=== PATIENT | male | born 1965 | race Caucasian/White ===

== ENCOUNTER 2023-04-07 16:26 | Inpatient (IN) | payer BC, SELFPAY ==
[2023-04-07] VITALS (24 sets, daily range): BP systolic 100–134; BP diastolic 62–94; PULSE 106–124; RESP 15–35; TEMP 36.3–36.8; O2SAT 79–100; BMI 32.6
--- NOTE | ~2023-04-07 | CT_ITS ---
CT OF right knee EXAMINATION: CT knee RT wo con DATE: 04/09/2023 16:45 INDICATION: Right lower extremity cellulitis TECHNIQUE: Computed tomography (CT) of the right knee was performed without intravenous contrast. Aut omated exposure control and iterative reconstruction technique were employed. The dose-length product was 707.31 mGy-cm. COMPARISON: None FINDINGS: Screw and plate fixation of the proximal tibia. No hardware fracture. No perihilar hardware lucency. Old healed tibial plateau fracture. Decreased bone mineral density with rarified trabecular bone. Mod erate right knee osteoarthritis. Linear calcifications over the MCL, may reflect old fracture fragmen ts and/or dystrophic calcification/ossification from prior injury. Atherosclerotic vascular calcifica tions. Small volume knee joint fluid. Subcutaneous edema over the anterior compartment. IMPRESSION: Subcutaneous edema over the anterior compartment. Evaluation for abscess is limited without contrast. No acute osseous finding. No CT evidence of hardware-related complication. Reviewed, dictated and finalized at location K. MOBILE IMPRESSION: Subcutaneous edema over the anterior compartment. Evaluation for abscess is merida ited without contrast. No acute osseous finding. No CT evidence of hardware-related complication.
--- NOTE | ~2023-04-07 | XR_ITS ---
EXAMINATION: XR chest 1V portable DATE: 04/07/2023 17:29 INDICATION: Several weeks of dyspnea TECHNIQUE: frontal view of the chest was obtained. COMPARISON: None FINDINGS: There is mild increased interstitial pattern in the bilateral lower lungs with suggestion of some bro nchial wall thickening. No pleural effusion or pneumothorax. The cardiomediastinal silhouette is with in normal limits for AP technique. IMPRESSION: 1. Mild increased initial pattern and mild bronchial wall thickening in the bilateral lower lung zone s which in the acute setting could be seen with bronchitis, atypical/early pneumonia or mild pulmonar y edema. Differential would include chronic interstitial lung disease. Reviewed, dictated and finalized at location A. CARETAKER IMPRESSION: 1. Mild increased initial pattern and mild bronchial wall thickening in the sunny ateral lower lung zones which in the acute setting could be seen with bronchiti s, atypical/early pneumonia or mild pulmonary edema. Differential would include chronic interstitial lung disease.
--- NOTE | ~2023-04-07 | XR_ITS ---
EXAMINATION: XR foot RT min 3V DATE: 04/11/2023 10:55 INDICATION: Right foot pain TECHNIQUE: Dorsoplantar, lateral, and 2 oblique views of the right foot were obtained. COMPARISON: None. FINDINGS: There is marked osteopenia of the right foot which limits sensitivity for fracture although none is seen. There is mild osteoarthritis of multiple interphalangeal joints. The soft tissues are unremarkable. IMPRESSION: 1. No acute osseous abnormality, sensitivity for fracture limited by osteopenia.. Reviewed, dictated and finalized at location L. HER OF GIFTED STUDENTS IMPRESSION: 1. No acute osseous abnormality, sensitivity for fracture limited by osteopenia ..
--- NOTE | 2023-04-07 16:42 | ECG_ITS ---
Measurements Intervals [place] Rate: 121 P: 72 ID: 151 QRS: 165 QRSD: 87 T: 60 QT: 312 QTc: 443 Interpretive Statements SINUS TACHYCARDIA LOW QRS VOLTAGE INCOMPLETE RIGHT BUNDLE BRANCH BLOCK RIGHT SUPERIOR AXIS DEVIATION ABNORMAL ECG NO PREVIOUS ECG AVAILABLE FOR COMPARISON Electronically Signed On 04-08-2023 8:13:44 [employer]LOOR MECH[employer] by Nic Borrero M.D.
[2023-04-07] MEDS: IPRATROPIUM BR 0.02% INH SOLN 0.5 MG/2.5 ML VIAL 1.5 MG INHALATION (16:50)
[2023-04-07] MEDS: ALBUTEROL SULFATE NEB 2.5 MG/3 ML INH 15 MG INHALATION (16:51)
[2023-04-07 17:08] LABS: Fractional Inspired Oxygen 40 %; HCO3 VBG 23.9 mEq/l (24.0-30.0); PO2 VBG 33.3 mmHg (35.0-45.0)
[2023-04-07 17:11] LABS: Device NASAL CANNULA; PCO2 VBG 67.3 mmHg (42.0-48.0); pH VBG 7.169 (7.300-7.400)
[2023-04-07 17:11] LABS: Basophils Percent Auto 0.2 % (0.2-1.2); Hematocrit 52.6 % (42.0-52.0); Hemoglobin 16.4 g/dL (14.0-18.0); Immature Granulocyte Absolute 0.04 K/mm3 (0.00-0.031); Immature Granulocyte Percent A 0.4 % (0-0.5); Lymphocytes Absolute Auto 0.41 K/mm3 (0.9-3.2); Lymphocytes Percent Auto 3.9 % (18.3-44.2); Mean Corpuscular HGB Conc 31.2 g/dl (32-36); Mean Corpuscular Hemoglobin 29.8 pg (26-34); Mean Corpuscular Volume 95.5 fl (80-100); Mean Platelet Volume 12.3 fl (7.4-10.4); Monocytes Absolute Auto 0.4 K/mm3 (0.1-0.6); Monocytes Percent Auto 3.7 % (2.6-8.5); Neutrophils Absolute Auto 9.5 K/mm3 (1.3-6.7); Neutrophils Percent Auto 91.8 % (45.5-73.1); Platelet Count Result 144 k/mm3 (150-375); Red Blood Count 5.51 M/mm3 (4.6-6.20); Red Cell Distribution Width 15.2 % (11.5-14.5); White Blood Count 10.4 K/mm3 (4.5-10.0)
[2023-04-07 17:22] LABS: INR 1.1; Prothrombin Time 14.7 Seconds (11.1-14.7)
[2023-04-07 17:26] LABS: Alanine Aminotransferase 184 U/L (6-50); Albumin Level 3.8 g/dL (3.5-5.1); Alkaline Phosphatase 113 U/L (38-126); Anion Gap 6 mmol/L (8-16); Aspartate Amino Transferase 105 U/L (17-59); Bilirubin,Total 0.5 mg/dL (0.2-1.3); Blood Urea Nitrogen 55 mg/dL (9-20); Calcium 9.7 mg/dL (8.4-10.2); Carbon Dioxide 25 mmol/L (22-30); Chloride 100 mmol/L (98-107); Estimated CRCL calculation 29 ml/min; Estimated Glomerular Filt Rate 25; Glucose 398 mg/dL (65-110); Potassium 5.6 mmol/L (3.4-5.0); Sodium 131 mmol/L (137-145)
[2023-04-07] MEDS: methylPREDNISolone SOD SUCC 125 MG VIAL IV PUSH (17:37)
[2023-04-07 17:41] LABS: NT Pro B Type Natriuretic Pept > 30000 pg/mL (19.9-100); Troponin I 0.082 ng/mL (0.000-0.034)
[2023-04-07 17:59] LABS: Appearance Urine Clear (Clear); Bacteria Urine None Seen /hpf; Bilirubin Urine Negative (Negative); Blood Urine Negative (Negative); Color Urine Dark Yellow (Yellow); Glucose Urine UA 3+ mg/dL (Negative); Ketones Urine Negative (Negative); Leukocyte Esterase Ur Negative LEU/UL (Negative); Need Manual Microscopic Reviewed; Nitrate Urine Negative (Negative); Non Pathogenic Casts >20; Protein Urine 3+ mg/dL (Negative); RBC Urine 0-2 /hpf (0-2); Specific Grav Ur 1.023 (1.001-1.035); Squamous Epithelial Cell Urine Occasional /hpf (Few); WBC Urine 0-5 /hpf
[2023-04-07 18:00] LABS: Add Urine Microscopic? YES
--- NOTE | 2023-04-07 18:11 | ED.SOB ---
HPI - SOB/Dyspnea General Chief Complaint: Shortness of Breath/Dyspnea Stated Complaint: SOB/out of meds Time Seen by Provider: 04/07/23 16:37 History of Present Illness HPI Narrative: Patient is a 57-year-old male with history of COPD, CHF, CKD here from [facility] with shortness of breath. He states that began in February but worsened today. He does note that he has a history of COPD and has had to be intubated in the past. He notes recent [place] of state for bilateral pneumonia and blood per rectum. He denies any current antibiotic use. He has not been using his inhalers recently. He notes some chest tightness which also began today. Denies fever or chills. He note he typically takes lasix, has been out of it for over a year. Related Data Allergies Allergy/AdvReac Type Severity Reaction Status Date / Time codeine Allergy Hives Verified 04/07/23 16:27 ibuprofen [From Motrin] Allergy Hives Verified 04/07/23 16:27 Penicillins Allergy Hives Verified 04/07/23 16:27 Review of Systems Review of Systems: ROS unobtainable: Yes unobtainable due to medical condition (significant dyspnea) Exam Narrative: GENERAL: Ill-appearing, well-nourished, and in in respiratory distress. HEAD: Normocephalic, atraumatic. EYES: PERRLA and EOMI. ENT: Nares clear. Mucous membranes moist. NECK: Supple. CHEST: Bilateral wheeze. Tachypneic, in moderate respiratory distress HEART: Tachycardic. Normal peripheral pulses. ABDOMEN: Soft, nontender, nondistended. EXTREMITIES: Normal range of motion. No edema. SKIN: Warm, dry, no rash. NEURO: No focal deficits. Alert and oriented x3. Course Course Emergency Course: Patient seen and evaluated on arrival, tachypneic, in respiratory distress, bilateral wheeze significant. Will do continuous nebulizer, steroids, blood gas. Will escalate to BiPAP if needed. Anticipate patient will require hospitalization. Cardiac workup additionally ordered. Blood gas shows pH is 7.1 with a pCO2 elevated at 67. Will place patient on BiPAP. Lab work reviewed, my blood cell count of 10.4, creatinine elevated at 2.7, no baseline for a fear. Potassium is 5.6. Troponin elevated at 0.082. BNP greater than 30,000. Patient re-evaluated, feeling quite a bit better at this time. Tolerating BiPAP well. Producing urine, will give dose of Lasix. Repeat blood gas has been ordered. Patient re-evaluated, feeling quite well. No active chest pain. Does note history of CHF, supposed to be on lasix, not taking it. Also believes he has a history of CKD. Spoke with Dr. Hoff who accepts patient for admission. Doxycycline ordered for possible bacterial COPD exacerbation vs atypical pneumonia seen on CXR. Vital Signs Vital signs: Vital Signs Temperature 97.4 F L 04/07/23 16:31 Pulse Rate 122 H 04/07/23 16:31 Respiratory Rate 20 04/07/23 16:31 Blood Pressure 100/62 04/07/23 16:31 Pulse Oximetry 79 L 04/07/23 16:31 Oxygen Delivery Room Air 04/07/23 16:31 Temperature 97.4 F L 04/07/23 16:31 Pulse Rate 114 H 04/07/23 18:58 Respiratory Rate 30 H 04/07/23 18:31 Blood Pressure 123/92 H 04/07/23 18:16 Pulse Oximetry 99 04/07/23 17:46 Oxygen Delivery BiPAP 04/07/23 17:45 Oxygen Flow Rate 4 04/07/23 16:45 MDM - SOB/Dyspnea Lab Data 04/07/23 17:03 04/07/23 17:03 Labs: Lab Results 04/07/23 04/07/23 04/07/23 Range/Units 17:03 17:44 18:20 WBC 10.4 H (4.5-10.0) K/mm3 RBC 5.51 (4.6-6.20) M/mm3 Hgb 16.4 (14.0-18.0) g/dL Hct 52.6 H (42.0-52.0) % MCV 95.5 (80-100) fl MCH 29.8 (26-34) pg MCHC 31.2 L (32-36) g/dl RDW 15.2 H (11.5-14.5) % Plt Count 144 L (150-375) k/mm3 MPV 12.3 H (7.4-10.4) fl Immature Gran % (Auto) 0.4 (0-0.5) % Neut % (Auto) 91.8 H (45.5-73.1) % Lymph % (Auto) 3.9 L (18.3-44.2) % [place] % (Auto) 3.7 (2.6-8.5) % Eos % (Auto
[2023-04-07] MEDS: FUROSEMIDE INJ 40 MG/4 ML VIAL IV PUSH (18:56)
[2023-04-07 19:01] LABS: Influenza A QL RT-PCR Negative (Negative); Influenza B QL RT-PCR Negative (Negative); RSV RNA, RT-PCR Negative (Negative); SARS-CoV-2 RNA PCR Negative (Negative)
--- NOTE | 2023-04-07 19:37 | ECG_ITS ---
Measurements Intervals [place] Rate: 106 P: -32 RI: 143 QRS: 260 QRSD: 86 T: -70 QT: 346 QTc: 461 Interpretive Statements BASELINE ARTIFACT, REDUCED ECG QUALITY SINUS TACHYCARDIA LOW-VOLTAGE QRS INCOMPLETE RIGHT BUNDLE BRANCH BLOCK RIGHT SUPERIOR AXIS DEVIATION NONSPECIFIC T-WAVE ABNORMALITY ABNORMAL ECG COMPARED TO ECG 04/07/2023 16:43:38 NO DIFFERENCE Electronically Signed On 04-08-2023 8:20:45 [employer] by Nic Borrero M.D.
--- NOTE | 2023-04-07 19:39 | PC.NURSE ---
this rn assumed care of patient. this rn took patient report from MIGUEL Leblanc.
[2023-04-07] MEDS: ASPIRIN 81 MG CHEWABLE TABLET 324 MG PO (19:47)
[2023-04-07 20:03] LABS: Fractional Inspired Oxygen 35 %; HCO3 VBG 26.7 mEq/l (24.0-30.0)
[2023-04-07 20:05] LABS: pH VBG 7.182 (7.300-7.400)
[2023-04-07 20:06] LABS: Device BIPAP; Expiratory Pressure 8 cmH2O; Inspiratory Pressure 12 cmH2O; PCO2 VBG 72.9 mmHg (42.0-48.0)
[2023-04-07] MEDS: DOXYCYCLINE 100 MG/NS 100 ML 100 MG/100 ML BAG IVPB (20:08)
[2023-04-07 20:20] LABS: Troponin I 0.093 ng/mL (0.000-0.034)
--- NOTE | 2023-04-07 20:31 | PC.NURSE ---
Pt educated about importance of wearing bipap machine. pt verbalized understanding, pt continued to take bipap machine off and kept stating I don't need to wear this junk . Respiratory also educated pt on importance of wearing bipap machine. Pt continued to take bipap on and off.
--- NOTE | 2023-04-07 21:06 | PM.IMHP ---
H&P: HPI History of Present Illness Date/Time: 04/07/23 21:06 Chief Complaint: Shortness of breath Narrative: patient is a 57-year-old male with history of COPD, CHF, CKD here from [facility] with shortness of breath.? He states that began in February but worsened today.? He does note that he has a history of COPD and has had to be intubated in the past.? He notes recent hospitalization for [place] months out of state for bilateral pneumonia and blood per rectum.? He denies any current antibiotic use.? He has not been using his inhalers recently.? He notes some chest tightness which also began today. Denies fever or chills. He note he typically takes lasix, has been out of it for over a year. Review of Systems Review of Systems: All systems reviewed & are unremarkable except as noted in HPI and below PMFSH Family History Family History (Updated 04/07/23 @ 22:29 by Karan Vergara RN) Father Hypertension High blood cholesterol Diabetes mellitus Mother Breast cancer Kidney disease Social History Social History Smoking packs per day: 2 Smoking cigarettes per day: 40.0 Years smoked: 20 Smoking pack-years: 40.00 Smoking status: Current every day smoker Alcohol intake: current Drinks per week: 10 Substance use type: marijuana Do You Feel Safe in your Home?: Yes Lack of Transportation: No Lack of Food: Sometimes True Current Housing: I Do Not Have Housing Concerned About Future Housing: YES Difficulty Paying Gas/Electric Bills: YES Difficulty Paying for Meds: YES Currently Unemployed: YES Education: High School Diploma/GED Difficulty w/ Childcare or Family Care: No Spiritual care concerns: No Meds Home Medications and Allergies Home Medications Medication Instructions Recorded Confirmed Type albuterol sulfate 90 mcg/actuation 2 puff inhalation Q6H PRN 04/07/23 04/07/23 History aerosol inhaler Shortness Of Breath Or Wheezing aripiprazole 10 mg tablet 10 mg PO DAILY 04/07/23 04/07/23 History atorvastatin 40 mg tablet 40 mg PO DAILY 04/07/23 04/07/23 History bumetanide 2 mg tablet 2 mg PO DAILY 04/07/23 04/07/23 History fluticasone propionate 50 1 spray intranasal DAILY 04/07/23 04/07/23 History mcg/actuation nasal spray,suspension insulin glargine 100 unit/mL 10 unit subcut DAILY 04/07/23 04/07/23 History subcutaneous solution (Lantus U-100 Insulin) insulin lispro 100 unit/mL 5 unit subcut TIDWMEAL 04/07/23 04/07/23 History subcutaneous pen (Humalog KwikPen (U-100) Insulin) levothyroxine 25 mcg tablet 25 mcg PO DAILY 04/07/23 04/07/23 History metoprolol succinate 50 mg 50 mg PO DAILY 04/07/23 04/07/23 History tablet,extended release 24 hr Allergies Allergy/AdvReac Type Severity Reaction Status Date / Time codeine Allergy Hives Verified 04/07/23 16:27 ibuprofen [From Motrin] Allergy Hives Verified 04/07/23 16:27 Penicillins Allergy Hives Verified 04/07/23 16:27 Vital Signs Vital Signs - 24 hr 04/07/23 16:31 04/07/23 16:40 04/07/23 16:45 Temperature 97.4 F L Pulse Rate 122 H 121 H Respiratory Rate 20 34 H Blood Pressure 100/62 Pulse Oximetry 79 L 100 100 Oxygen Delivery Room Air Nasal Cannula Nasal Cannula Oxygen Flow Rate 4 4 04/07/23 16:50 04/07/23 17:39 04/07/23 17:45 Temperature Pulse Rate 119 H 121 H 116 H Respiratory Rate 24 H 24 H 32 H Blood Pressure Pulse Oximetry 99 Oxygen Delivery BiPAP Oxygen Flow Rate 04/07/23 16:45 04/07/23 17:01 04/07/23 17:18 Temperature Pulse Rate 121 H 120 H 122 H Respiratory Rate 15 28 H 19 Blood Pressure Pulse Oximetry 100 100 100 Oxygen Delivery Oxygen Flow Rate 04/07/23 17:30 04/07/23 17:45 04/07/23 17:46 Temperature Pulse Rate 124 H 120 H 119 H Respiratory Rate 26 H 25 H 35 H Blood Pressure 112/81 Pulse Oximetry 100 99 Oxygen Delivery Oxygen Flow Rate 04/07/23 18:07 04/07/23 18:15 04/07/23 18:16 Te
--- NOTE | 2023-04-07 21:11 | PC.NURSE ---
this rn observed pt not wearing bipap during routine check. pt was educated to wear bipap. pt stated I don't need to . This Rn placed bipap back on pt. Another RN placed pt back on bipap as well, and educated pt on importance, pt told RN, the nurse stated I do not have to wear that . Pt then requested to have RN help with urinal. Pt was able to perform ADL's independently during stay in the ER. Pt then stated he was wet and needed other RN to clean him up. Pt then removed pts and threw them on the chair in room.
--- NOTE | 2023-04-07 22:00 | ADMGEN ---
This patient, Oseas Arredondo, was admitted to IMU Room 213-01. Patient/family oriented to hospital policies and general routines including ID bracelet, bed and alarms, visiting hours, pain management, procedures, bathroom and other care routines, personal items, smoking policy, room service/diet, and visiting hours. Information on how to activate the Rapid Response Team has been discussed. Patient/Family are encouraged to report perceived risks to care and to ask questions if they do not understand what they are told or what they should do.
[2023-04-07 22:48] LABS: Anion Gap 7 mmol/L (8-16); Blood Urea Nitrogen 55 mg/dL (9-20); Calcium 9.2 mg/dL (8.4-10.2); Carbon Dioxide 24 mmol/L (22-30); Chloride 101 mmol/L (98-107); Estimated CRCL calculation 36 ml/min; Estimated Glomerular Filt Rate 30; Glucose 341 mg/dL (65-110); Potassium 5.4 mmol/L (3.4-5.0); Sodium 132 mmol/L (137-145)
[2023-04-07 22:51] LABS: Base Excess ABG -3.1 mEq/l (+/-2.0); Fractional Inspired Oxygen 35 %; HCO3 ABG 23.7 mEq/l (22.0-26.0); Oxygen Content ABG 21.2 %vol (16.0-22.0); Oxygen Saturation ABG 95.6 % (95.0-100.0); Oxyhemoglobin 93.7 % THb (90.0-100.0); PO2 ABG 86.6 mmHg (80.0-100.0); PO2 FiO2 Ratio Arterial Blood 2.47 %; Total Hemoglobin 16.1 g/dL (12.0-18.0); pH ABG 7.303 (7.350-7.450)
[2023-04-07 22:52] LABS: Site Drawn RIGHT RADIAL
[2023-04-07 22:53] LABS: Device NON-INVASIVE VENT; Modified Allen's Test Pass; Non-Invasive Expiratory Pressure 10 CMH2O; Non-Invasive Inspiratory Pressure 20 CMH2O; Non-Invasive Vent Rate 16 /MIN
[2023-04-07 23:18] LABS: Troponin I 0.093 ng/mL (0.000-0.034)
[2023-04-08] VITALS (29 sets, daily range): BP systolic 104–137; BP diastolic 58–78; PULSE 86–120; RESP 20–28; TEMP 35.9–36.6; O2SAT 91–99
[2023-04-08] MEDS: IPRATROPIUM 0.5 MG/ALBUTEROL SULFATE 2.5 MG AMPUL.NEB 3 ML INHALATION ×4 (03:00→20:42)
[2023-04-08 05:00] LABS: Basophils Percent Auto 0.1 % (0.2-1.2); Hematocrit 48.8 % (42.0-52.0); Immature Granulocyte Absolute 0.08 K/mm3 (0.00-0.031); Lymphocytes Absolute Auto 0.33 K/mm3 (0.9-3.2); Lymphocytes Percent Auto 4.1 % (18.3-44.2); Mean Corpuscular HGB Conc 30.7 g/dl (32-36); Mean Corpuscular Hemoglobin 29.4 pg (26-34); Mean Corpuscular Volume 95.5 fl (80-100); Mean Platelet Volume 12.2 fl (7.4-10.4); Monocytes Absolute Auto 0.1 K/mm3 (0.1-0.6); Monocytes Percent Auto 1.4 % (2.6-8.5); Neutrophils Absolute Auto 7.5 K/mm3 (1.3-6.7); Neutrophils Percent Auto 93.4 % (45.5-73.1); Platelet Count Result 132 k/mm3 (150-375); Red Blood Count 5.11 M/mm3 (4.6-6.20); Red Cell Distribution Width 15.2 % (11.5-14.5)
[2023-04-08 05:13] LABS: Anion Gap 8 mmol/L (8-16); Blood Urea Nitrogen 59 mg/dL (9-20); Calcium 9.1 mg/dL (8.4-10.2); Carbon Dioxide 25 mmol/L (22-30); Chloride 101 mmol/L (98-107); Estimated CRCL calculation 46 ml/min; Estimated Glomerular Filt Rate 39; Glucose 345 mg/dL (65-110); Potassium 5.3 mmol/L (3.4-5.0); Sodium 134 mmol/L (137-145)
[2023-04-08] MEDS: methylPREDNISolone SOD SUCC 40 MG VIAL IV PUSH ×3 (05:14→21:30)
[2023-04-08] MEDS: LEVOTHYROXINE SODIUM 25 MCG TABLET PO (05:14)
[2023-04-08] MEDS: INSULIN ASPART (*BKC) 100 UNITS/ML SUB-Q ×4 (09:16→20:31)
[2023-04-08] MEDS: INSULIN GLARGINE (*BKC) 100 UNITS/ML 10 UNITS SUB-Q (09:16)
[2023-04-08] MEDS: FLUTICASONE PROPIONATE 0.05% NA SPR 16 GM BTL (*BKC) 1 SPRAY NASAL (09:17)
[2023-04-08] MEDS: BUMETANIDE 1 MG TABLET 2 MG PO (09:17)
[2023-04-08] MEDS: ENOXAPARIN 30 MG/0.3 ML SYRINGE SUB-Q (09:18)
[2023-04-08] MEDS: ATORVASTATIN 40 MG TABLET PO (09:18)
[2023-04-08] MEDS: DOXYCYCLINE 100 MG/NS 100 ML 100 MG/100 ML BAG IVPB ×2 (09:18→21:30)
[2023-04-08] MEDS: ARIPiprazole 10 MG TABLET PO (09:18)
[2023-04-08] MEDS: METOPROLOL SUCCINATE EXT REL 50 MG TABCR PO (09:18)
[2023-04-08 10:15] LABS: Glucose Point of Care 395 mg/dl (65-105)
[2023-04-08 11:48] LABS: Glucose Point of Care 367 mg/dl (65-105)
--- NOTE | 2023-04-08 12:46 | PM.CNGS ---
Assessment and Plan Assessment and plan (1) Acute exacerbation of chronic obstructive pulmonary disease: Code(s): J44.1 - Chronic obstructive pulmonary disease with (acute) exacerbation Status: Acute Assessment and Plan: improved since admission, continue management per primary team (2) Acute exacerbation of CHF (congestive heart failure): Qualifiers: Heart failure type: unspecified Qualified Code(s): I50.9 - Heart failure, unspecified Code(s): I50.9 - Heart failure, unspecified Status: Acute Assessment and Plan: improved since admission, continue management per primary team (3) Cellulitis of right lower extremity: Code(s): L03.115 - Cellulitis of right lower limb Status: Acute Assessment and Plan: seems to be chronic in nature, no drainable collections on exam today, will get CT scan of lower extremity for further assessment given history of multiple orthopedic procedures including muscle flap History of Present Illness Consult details Consult date: 04/08/23 Reason for consult: wound care Requesting physician: Ramon Flores MD Narrative: The patient is a 57-year-old male with multiple medical issues presenting from the [facility] with COPD and CHF exacerbation. The patient reports that his main complaint is shortness of breath and weakness. The patient has had extensive right lower extremity orthopedic procedure secondary to fracture and trauma. The patient reports that he has noticed some increased pain and redness in that extremity over the last few weeks. The patient denies any fevers or chills, drainage from that area. Review of Systems Review of Systems: All systems reviewed & are unremarkable except as noted in HPI and below PMFSH Family History Family History (Updated 04/07/23 @ 22:29 by Karan Vergara RN) Father Hypertension High blood cholesterol Diabetes mellitus Mother Breast cancer Kidney disease Social History Social History Smoking packs per day: 2 Smoking cigarettes per day: 40.0 Years smoked: 20 Smoking pack-years: 40.00 Smoking status: Current every day smoker Alcohol intake: current Drinks per week: 10 Substance use type: marijuana Do You Feel Safe in your Home?: Yes Lack of Transportation: No Lack of Food: Sometimes True Current Housing: I Do Not Have Housing Concerned About Future Housing: YES Difficulty Paying Gas/Electric Bills: YES Difficulty Paying for Meds: YES Currently Unemployed: YES Education: High School Diploma/GED Difficulty w/ Childcare or Family Care: No Spiritual care concerns: No Comments PMH - CHF, DM, HTN, COPD, CKD PSH - multiple RLE orthopedic procedures including muscle flap Meds Home Medications and Allergies Home Medications Medication Instructions Recorded Confirmed Type albuterol sulfate 90 mcg/actuation 2 puff inhalation Q6H PRN 04/07/23 04/07/23 History aerosol inhaler Shortness Of Breath Or Wheezing aripiprazole 10 mg tablet 10 mg PO DAILY 04/07/23 04/07/23 History atorvastatin 40 mg tablet 40 mg PO DAILY 04/07/23 04/07/23 History bumetanide 2 mg tablet 2 mg PO DAILY 04/07/23 04/07/23 History fluticasone propionate 50 1 spray intranasal DAILY 04/07/23 04/07/23 History mcg/actuation nasal spray,suspension insulin glargine 100 unit/mL 10 unit subcut DAILY 04/07/23 04/07/23 History subcutaneous solution (Lantus U-100 Insulin) insulin lispro 100 unit/mL 5 unit subcut TIDWMEAL 04/07/23 04/07/23 History subcutaneous pen (Humalog KwikPen (U-100) Insulin) levothyroxine 25 mcg tablet 25 mcg PO DAILY 04/07/23 04/07/23 History metoprolol succinate 50 mg 50 mg PO DAILY 04/07/23 04/07/23 History tablet,extended release 24 hr Allergies Allergy/AdvReac Type Severity Reaction Status Date / Time codeine Allergy Hives Verified 04/07/23 16:27 ibuprofen [From Motrin] Allergy Hives Verified 04/07/23 16:2
[2023-04-08 16:42] LABS: Glucose Point of Care 208 mg/dl (65-105)
--- NOTE | 2023-04-08 18:04 | PM.IMPN ---
Progress Note: A&P Assessment and Plan (1) Acute exacerbation of chronic obstructive pulmonary disease: Code(s): J44.1 - Chronic obstructive pulmonary disease with (acute) exacerbation Status: Acute (2) Elevated troponin: Code(s): R79.89 - Other specified abnormal findings of blood chemistry Status: Acute (3) CKD (chronic kidney disease): Code(s): N18.9 - Chronic kidney disease, unspecified Status: Acute (4) Hyperkalemia: Code(s): E87.5 - Hyperkalemia Status: Acute Plan Admit patient for further management, trend troponin, repeat ABG and make BiPAP adjustment based on laboratory 04/08/23: Cefepime; Steroids, Bronchodilators, consult Cardiology ECHO; Meropenem Consulted General surgery for r/[place] swelling Time Spent With Patient Time with patient: 25 - 35 minutes Subjective Date/time seen: 04/08/23 18:04 Interval history: Seen and examined; concerned about the right [place] swelling and pain and shortness of breath Review of Systems Review of Systems: All systems reviewed & are unremarkable except as noted in HPI and below Exam Narrative: ENERAL: Ill-appearing, well-nourished, and in in respiratory distress. HEAD: Normocephalic, atraumatic. EYES: PERRLA and EOMI. ENT: Nares clear.? Mucous membranes moist. NECK: Supple. CHEST: Bilateral wheeze.? Tachypneic, in moderate respiratory distress HEART:? Tachycardic.? Normal peripheral pulses. ABDOMEN: Soft, nontender, nondistended. EXTREMITIES: Normal range of motion.? No edema. SKIN: Warm, dry, no rash. NEURO: No focal deficits.? Alert and oriented x3. ? Objective Data Vital Signs Vital Signs: Vital Signs - 24 hr 04/07/23 18:07 04/07/23 18:15 04/07/23 18:16 Temperature Pulse Rate 115 H 115 H 116 H Respiratory Rate 32 H 26 H 20 Blood Pressure 123/92 H Pulse Oximetry Oxygen Delivery Oxygen Flow Rate Fraction of Inspired Oxygen 04/07/23 18:31 04/07/23 18:58 04/07/23 20:08 Temperature Pulse Rate 114 H 114 H 115 H Respiratory Rate 30 H Blood Pressure 131/94 H Pulse Oximetry 99 Oxygen Delivery Oxygen Flow Rate Fraction of Inspired Oxygen 04/07/23 20:31 04/07/23 20:46 04/07/23 22:01 Temperature Pulse Rate 117 H 112 H 111 H Respiratory Rate 31 H 24 H Blood Pressure 119/76 116/89 Pulse Oximetry 100 99 Oxygen Delivery BiPAP Oxygen Flow Rate Fraction of Inspired Oxygen 04/07/23 22:00 04/07/23 21:56 04/07/23 23:19 Temperature Pulse Rate 113 H 115 H Respiratory Rate 31 H Blood Pressure Pulse Oximetry 96 99 Oxygen Delivery BiPAP BiPAP Oxygen Flow Rate Fraction of Inspired Oxygen 35 04/07/23 23:40 04/07/23 23:53 04/08/23 00:00 Temperature 98.3 F Pulse Rate 106 H 105 H Respiratory Rate 30 H Blood Pressure 134/83 Pulse Oximetry 100 96 Oxygen Delivery BiPAP Oxygen Flow Rate Fraction of Inspired Oxygen 35 04/08/23 02:00 04/08/23 03:00 04/08/23 03:33 Temperature Pulse Rate 101 H 102 H Respiratory Rate 25 H Blood Pressure Pulse Oximetry 94 Oxygen Delivery BiPAP Oxygen Flow Rate Fraction of Inspired Oxygen 35 04/08/23 04:09 04/08/23 04:00 04/08/23 04:00 Temperature 97.6 F Pulse Rate 100 103 H 103 H Respiratory Rate 26 H 28 H Blood Pressure 127/58 L Pulse Oximetry 95 96 Oxygen Delivery BiPAP Oxygen Flow Rate Fraction of Inspired Oxygen 04/08/23 06:19 04/08/23 06:00 04/08/23 07:59 Temperature 97.4 F L Pulse Rate 105 H 120 H Respiratory Rate 26 H Blood Pressure 134/77 Pulse Oximetry 93 91 Oxygen Delivery Nasal Cannula Oxygen Flow Rate 2 Fraction of Inspired Oxygen 04/08/23 08:22 04/08/23 08:22 04/08/23 08:30 Temperature Pulse Rate 118 H 115 H Respiratory Rate 24 H 24 H Blood Pressure Pulse Oximetry 92 Oxygen Delivery Nasal Cannula Oxygen Flow Rate 4 Fraction of Inspired Oxygen 04/08/23 09:18 04/08/23 11:36
[2023-04-08] MEDS: MEROPENEM 1 GM/NS 100 ML BAG IVPB (19:43)
[2023-04-08] MEDS: FUROSEMIDE INJ 40 MG/4 ML VIAL IV PUSH (19:43)
[2023-04-08 19:51] LABS: Glucose Point of Care 237 mg/dl (65-105)
[2023-04-08 21:12] LABS: Procalcitonin 0.2 ng/mL
[2023-04-09] VITALS (31 sets, daily range): BP systolic 113–139; BP diastolic 67–77; PULSE 80–93; RESP 18–22; TEMP 35.7–36.6; O2SAT 90–98
[2023-04-09] MEDS: IPRATROPIUM 0.5 MG/ALBUTEROL SULFATE 2.5 MG AMPUL.NEB 3 ML INHALATION ×4 (02:54→19:37)
[2023-04-09 04:59] LABS: Hematocrit 48.5 % (42.0-52.0); Hemoglobin 14.9 g/dL (14.0-18.0); Immature Granulocyte Absolute 0.02 K/mm3 (0.00-0.031); Immature Granulocyte Percent A 0.3 % (0-0.5); Lymphocytes Absolute Auto 0.25 K/mm3 (0.9-3.2); Mean Corpuscular HGB Conc 30.7 g/dl (32-36); Mean Corpuscular Hemoglobin 29.4 pg (26-34); Mean Corpuscular Volume 95.8 fl (80-100); Mean Platelet Volume 12.1 fl (7.4-10.4); Monocytes Absolute Auto 0.2 K/mm3 (0.1-0.6); Monocytes Percent Auto 2.4 % (2.6-8.5); Neutrophils Absolute Auto 5.9 K/mm3 (1.3-6.7); Neutrophils Percent Auto 93.3 % (45.5-73.1); Platelet Count Result 119 k/mm3 (150-375); Red Blood Count 5.06 M/mm3 (4.6-6.20); Red Cell Distribution Width 15.4 % (11.5-14.5); White Blood Count 6.3 K/mm3 (4.5-10.0)
[2023-04-09 05:20] LABS: Alanine Aminotransferase 113 U/L (6-50); Albumin Level 3.3 g/dL (3.5-5.1); Alkaline Phosphatase 97 U/L (38-126); Anion Gap 4 mmol/L (8-16); Aspartate Amino Transferase 38 U/L (17-59); Bilirubin,Total 0.6 mg/dL (0.2-1.3); Blood Urea Nitrogen 79 mg/dL (9-20); Calcium 8.9 mg/dL (8.4-10.2); Carbon Dioxide 30 mmol/L (22-30); Chloride 100 mmol/L (98-107); Estimated CRCL calculation 55 ml/min; Estimated Glomerular Filt Rate 48; Glucose 361 mg/dL (65-110); Sodium 134 mmol/L (137-145)
[2023-04-09] MEDS: MEROPENEM 1 GM/NS 100 ML BAG IVPB ×2 (06:22→19:28)
[2023-04-09] MEDS: LEVOTHYROXINE SODIUM 25 MCG TABLET PO (06:22)
[2023-04-09] MEDS: methylPREDNISolone SOD SUCC 40 MG VIAL IV PUSH ×3 (06:22→21:14)
[2023-04-09 07:44] LABS: Glucose Point of Care 364 mg/dl (65-105)
[2023-04-09] MEDS: DOXYCYCLINE 100 MG/NS 100 ML 100 MG/100 ML BAG IVPB ×2 (10:43→21:14)
[2023-04-09] MEDS: ATORVASTATIN 40 MG TABLET PO (10:44)
[2023-04-09] MEDS: ENOXAPARIN 30 MG/0.3 ML SYRINGE SUB-Q (10:44)
[2023-04-09] MEDS: ARIPiprazole 10 MG TABLET PO (10:44)
[2023-04-09] MEDS: METOPROLOL SUCCINATE EXT REL 50 MG TABCR PO (10:44)
[2023-04-09] MEDS: FUROSEMIDE INJ 40 MG/4 ML VIAL IV PUSH ×2 (10:44→17:07)
[2023-04-09] MEDS: INSULIN GLARGINE (*BKC) 100 UNITS/ML 10 UNITS SUB-Q (10:46)
[2023-04-09 11:39] LABS: Glucose Point of Care 463 mg/dl (65-105)
[2023-04-09] MEDS: INSULIN ASPART (*BKC) 100 UNITS/ML 10 UNITS SUB-Q ×2 (12:02→17:07)
--- NOTE | 2023-04-09 12:25 | PM.CNCAR ---
Assessment and Plan Assessment and plan (1) Elevated troponin: Code(s): R79.89 - Other specified abnormal findings of blood chemistry Status: Acute Plan This is a 57-year-old man who came to the hospital on Monday night with a severe COPD exacerbation. In that setting his troponin levels were sampled and were modestly elevated but flat. He did not have a rise and fall in this pattern compatible with acute plaque rupture/acute [place]. he was markedly acidemic at the time these were drawn as well. At this point he is more stable clinic do not believe we need to conduct any further cardiac workup while he is in the hospital here his plans are after discharge to travel back to [place] where he currently resides. There are a lot of personal/family problems and stressors here that I did not delve into with the patient during the time of this consultation Nic Borrero MD [facility] WITH [facility] History of Present Illness History of Present Illness Consult date/time: 04/09/23 12:25 Reason For Visit: copd, chf, elevated trop, on bipap Narrative: This is a 57-year-old man I am seeing at the request of the hospitalist because of troponin elevation. The patient states that he was brought to the hospital on Monday night because of symptoms of severe shortness of breath. The patient has been having difficulty with shortness of breath chronically that is attributed to significant COPD related ongoing cigarette smoking. He normally resides in [place] but was in this area to attend to some family issues and apparently things were going well and he ended up getting arrested and he was in [facility] usp. Because of severe respiratory distress he was brought to the emergency room. On Monday night when he was brought here he was in extreme respiratory distress with a respiratory acidosis and a pH of 7.1. He was not reporting any chest pain pressure or heaviness. Troponin levels were sampled and they were out of normal range but at 0.08 with all 3 samples being the same. The patient's electrocardiogram did not show any evidence of acute current of injury. There was some nonspecific precordial T-wave inversion on 1 of the tracings. The patient states that he is known to have diabetes hypertension and dyslipidemia. He reports that 1 of his previous physicians about a decade ago was concerned about coronary disease and he underwent a left heart catheterization at [facility] which was an unremarkable exam. He also has significant history of trauma to the right lower extremity and at least a couple of orthopedic procedures done to repair extensive fractures in that leg. He is currently in no distress wearing nasal cannula oxygen in his room and in this setting I am seeing him in consultation. The troponin levels that I described above were drawn on Monday night when he 1st came into the hospital. Review of Systems Constitutional: Constitutional: Reports body ache(s) Eyes: Eyes: Reports no additional eye complaints ENT: Reports system reviewed and no additional complaints, except as documented Cardiovascular: Cardiovascular: Reports no additional cardiovascular complaints Respiratory: Respiratory: Reports dyspnea Gastrointestinal: Gastrointestinal: Reports no additional gastrointestinal complaints Musculoskeletal: Musculoskeletal: Reports myalgias Comments: Right lower extremity pain Neurologic: Reports system reviewed and no additional complaints, except as documented Endocrine: Endocrine: Reports no additional endocrine complaints Hematologic/Lymphatic: Hematologic/Lymphatic: Reports no additional hematologic/lymphatic complaints Allergic/Immunologic: Allergic/Immunologic: Reports no additional allergic/immunologic complaints [facility] Family History Family History (Updated 04/07/23 @ 22:29 by Karan Vergara RN) Father Hypertension High blood cholesterol Diabetes mellitus Mother Breast cancer Kidney disease
--- NOTE | 2023-04-09 12:30 | PM.PNGS ---
Progress Note: A&P Assessment and Plan (1) Cellulitis of right lower extremity: Code(s): L03.115 - Cellulitis of right lower limb Status: Acute Assessment and Plan: awaiting imaging of RLE, may need ortho consult given multiple procedures and hardware in that leg, cont abx Subjective Subjective Date/Time Seen: 04/09/23 12:30 Interval history: no acute issues, still c/o some SOB, RLE pain Review of Systems Review of Systems: All systems reviewed & are unremarkable except as noted in HPI and below Exam Const: General: cooperative, comfortable, no acute distress and ill appearing Resp: Auscultation: diminished lung sounds Cardio: Rate: regular rate Rhythm: regular rhythm GI: Inspection: normal to inspection Extrem: Other: mild cellulitis RLE, no open wounds, no drainable fluid collections Objective Data Vital Signs Vital Signs: Vital Signs - 24 hr 04/08/23 14:35 04/08/23 14:42 04/08/23 16:13 Temperature 35.9 C L Pulse Rate 98 97 96 Respiratory Rate 24 H 24 H 20 Blood Pressure 111/68 Pulse Oximetry 98 Oxygen Delivery Oxygen Flow Rate Fraction of Inspired Oxygen 04/08/23 14:00 04/08/23 16:00 04/08/23 18:00 Temperature Pulse Rate 96 97 95 Respiratory Rate Blood Pressure Pulse Oximetry Oxygen Delivery Oxygen Flow Rate Fraction of Inspired Oxygen 04/08/23 16:00 04/08/23 20:04 04/08/23 20:42 Temperature 36.5 C Pulse Rate 94 90 Respiratory Rate 20 Blood Pressure 104/70 Pulse Oximetry 96 96 Oxygen Delivery Nasal Cannula Oxygen Flow Rate 4 Fraction of Inspired Oxygen 04/08/23 20:46 04/08/23 20:00 04/08/23 23:27 Temperature 36.6 C Pulse Rate 86 Respiratory Rate 20 Blood Pressure 106/62 Pulse Oximetry 99 95 99 Oxygen Delivery Nasal Cannula Nasal Cannula Oxygen Flow Rate 3 4 Fraction of Inspired Oxygen 04/08/23 20:00 04/08/23 22:00 04/08/23 23:00 Temperature Pulse Rate 91 90 Respiratory Rate Blood Pressure Pulse Oximetry 98 Oxygen Delivery BiPAP Oxygen Flow Rate Fraction of Inspired Oxygen 35 04/08/23 23:00 04/09/23 00:00 04/09/23 00:30 Temperature Pulse Rate 86 86 Respiratory Rate 21 H Blood Pressure Pulse Oximetry 99 96 Oxygen Delivery BiPAP Nasal Cannula Oxygen Flow Rate 3 Fraction of Inspired Oxygen 04/09/23 02:00 04/09/23 02:54 04/09/23 03:01 Temperature Pulse Rate 82 83 82 Respiratory Rate 19 19 Blood Pressure Pulse Oximetry Oxygen Delivery Oxygen Flow Rate Fraction of Inspired Oxygen 04/09/23 03:11 04/09/23 04:09 04/09/23 04:09 Temperature 36.6 C Pulse Rate 83 Respiratory Rate 20 Blood Pressure 113/70 Pulse Oximetry 94 95 95 Oxygen Delivery Nasal Cannula Nasal Cannula Oxygen Flow Rate 2 2 Fraction of Inspired Oxygen 04/09/23 04:00 04/09/23 06:00 04/09/23 07:57 Temperature 36.1 C L Pulse Rate 84 81 80 Respiratory Rate 20 Blood Pressure 115/76 Pulse Oximetry 96 Oxygen Delivery Oxygen Flow Rate Fraction of Inspired Oxygen 04/09/23 08:34 04/09/23 08:40 04/09/23 08:48 Temperature Pulse Rate 87 87 89 Respiratory Rate 18 18 18 Blood Pressure Pulse Oximetry 90 Oxygen Delivery Nasal Cannula Oxygen Flow Rate 2 Fraction of Inspired Oxygen 04/09/23 10:44 04/09/23 12:02 Temperature 35.7 C L Pulse Rate 89 85 Respiratory Rate 22 H Blood Pressure 121/67 Pulse Oximetry 98 Oxygen Delivery Oxygen Flow Rate Fraction of Inspired Oxygen Intake/Output Intake/Output: Intake & Output 04/06/23 04/07/23 04/08/23 04/09/23 23:59 23:59 23:59 23:59 Intake Total 100 1280 2276 Output Total 2325 1900 Balance 100 -1045 376 Meds/Results Medications: Active Medications Generic Name Dose Route Start Last Admin Trade Name Freq PRN Reason Stop Dose Admin Albuterol 2 puff 04/07/23 23:01 Albuterol Sulfate (*Sp) Aerosol 1 Puf
--- NOTE | 2023-04-09 12:53 | PM.IMPN ---
Progress Note: A&P Assessment and Plan (1) Acute exacerbation of chronic obstructive pulmonary disease: Code(s): J44.1 - Chronic obstructive pulmonary disease with (acute) exacerbation Status: Acute Assessment and Plan: supplemental oxygen, Anti-biotics, Bronchodilators. (2) Elevated troponin: Code(s): R79.89 - Other specified abnormal findings of blood chemistry Status: Acute Assessment and Plan: Cardiology not pursuing further inpatient evaluation (3) CKD (chronic kidney disease): Code(s): N18.9 - Chronic kidney disease, unspecified Status: Acute Assessment and Plan: Avoid nephrotoxins (4) Hyperkalemia: Code(s): E87.5 - Hyperkalemia Status: Acute Assessment and Plan: Improved; (5) Cellulitis of right lower extremity: Code(s): L03.115 - Cellulitis of right lower limb Status: Acute Assessment and Plan: General surgery on board; may need Orthopedic surgery. (6) Nicotine dependence: Code(s): F17.200 - Nicotine dependence, unspecified, uncomplicated Status: Acute Assessment and Plan: Cessation counselling, 3 minutes (7) Obesity (BMI 30-39.9): Code(s): E66.9 - Obesity, unspecified Status: Acute Assessment and Plan: Diet and lifestyle modification Plan Admit patient for further management, trend troponin, repeat ABG and make BiPAP adjustment based on laboratory 04/08/23: Cefepime; Steroids, Bronchodilators, consult Cardiology ECHO; Meropenem Consulted General surgery for r/[place] swelling 04/09/23: Time Spent With Patient Time with patient: 25 - 35 minutes Subjective Date/time seen: 04/09/23 12:53 Interval history: Seen and examined; concerned about the right [place] swelling and pain and shortness of breath 04/09/23: seen and examined; concerned about his wallet. Review of Systems Review of Systems: All systems reviewed & are unremarkable except as noted in HPI and below Exam Narrative: ENERAL: Ill-appearing, well-nourished, and in in respiratory distress. HEAD: Normocephalic, atraumatic. EYES: PERRLA and EOMI. ENT: Nares clear.? Mucous membranes moist. NECK: Supple. CHEST: Bilateral wheeze.? Tachypneic, in moderate respiratory distress HEART:? Tachycardic.? Normal peripheral pulses. ABDOMEN: Soft, nontender, nondistended. EXTREMITIES: Normal range of motion.? No edema. SKIN: Warm, dry, no rash. NEURO: No focal deficits.? Alert and oriented x3. ? Objective Data Vital Signs Vital Signs: Vital Signs - 24 hr 04/08/23 14:35 04/08/23 14:42 04/08/23 16:13 Temperature 96.6 F L Pulse Rate 98 97 96 Respiratory Rate 24 H 24 H 20 Blood Pressure 111/68 Pulse Oximetry 98 Oxygen Delivery Oxygen Flow Rate Fraction of Inspired Oxygen 04/08/23 14:00 04/08/23 16:00 04/08/23 18:00 Temperature Pulse Rate 96 97 95 Respiratory Rate Blood Pressure Pulse Oximetry Oxygen Delivery Oxygen Flow Rate Fraction of Inspired Oxygen 04/08/23 16:00 04/08/23 20:04 04/08/23 20:42 Temperature 97.7 F Pulse Rate 94 90 Respiratory Rate 20 Blood Pressure 104/70 Pulse Oximetry 96 96 Oxygen Delivery Nasal Cannula Oxygen Flow Rate 4 Fraction of Inspired Oxygen 04/08/23 20:46 04/08/23 20:00 04/08/23 23:27 Temperature 97.8 F Pulse Rate 86 Respiratory Rate 20 Blood Pressure 106/62 Pulse Oximetry 99 95 99 Oxygen Delivery Nasal Cannula Nasal Cannula Oxygen Flow Rate 3 4 Fraction of Inspired Oxygen 04/08/23 20:00 04/08/23 22:00 04/08/23 23:00 Temperature Pulse Rate 91 90 Respiratory Rate Blood Pressure Pulse Oximetry 98 Oxygen Delivery BiPAP Oxygen Flow Rate Fraction of Inspired Oxygen 35 04/08/23 23:00 04/09/23 00:00 04/09/23 00:30 Temperature Pulse Rate 86 86 Respiratory Rate 21 H Blood Pressure Pulse Oximetry 99 96 Oxygen Delivery BiPAP Nasal Cannula Oxygen
[2023-04-09 16:50] LABS: Glucose Point of Care 433 mg/dl (65-105)
[2023-04-09 20:19] LABS: Glucose Point of Care 191 mg/dl (65-105)
[2023-04-09] MEDS: INSULIN GLARGINE (*BKC) 100 UNITS/ML 20 UNITS SUB-Q (21:30)
[2023-04-10] VITALS (28 sets, daily range): BP systolic 120–156; BP diastolic 65–94; PULSE 73–97; RESP 16–25; TEMP 36.2–36.8; O2SAT 93–100
--- NOTE | 2023-04-10 | ECHO_ITS ---
Patient Info Name: Oseas Arredondo Age: 57 years : 1965 Gender: Male Ht: 67 in Wt: 213 lbs BSA: 2.17 m2 HR: 77 bpm BP: 135 / 73 mmHg Heart Rhythm: Sinus Rhythm Technical Quality: Fair Exam Date: 04/10/2023 1:10 PM Exam Location: Echo Lab Patient Status: Inpatient Admit Date: 04/07/2023 Staff Ordering Physician: Ramon Flores MD Tallier: Sarahy Castle RDCS Attending Provider: Amy Hoff MD Referring Physician: Sandra GRIFFIN; Exam Type: CA echo doppler color flow Study Info Indications - elevated troponin and BNP Complete two-dimensional, color flow and Doppler transthoracic echocardiogram is performed. Summary 1. Complete two-dimensional, color flow and Doppler transthoracic echocardiogram is performed. 2. Left ventricular chamber dimension is normal. 3. Left ventricular systolic function is normal, estimated at 50-55%. 4. Left ventricular septal wall motion is abnormal with septal motion related to bundle branch block. 5. The left ventricular diastolic function is grade I diastolic dysfunction. 6. Right ventricular systolic function is normal. 7. Left atrial chamber dimension is mildly enlarged. 8. Right atrial chamber dimension is mildly enlarged. 9. There is mild mitral valve regurgitation. 10. There is mild tricuspid valve regurgitation. Left Ventricle Left ventricular chamber dimension is normal. Left ventricular systolic function is normal, estimated at 50-55%. There is no increased left ventricular wall thickness. Left ventricular septal wall motion is abnormal with septal motion related to bundle branch block. The left ventricular diastolic function is grade I diastolic dysfunction. Right Ventricle Right ventricular chamber dimension is normal. Right ventricular systolic function is normal. Left Atria Left atrial chamber dimension is mildly enlarged. Right Atria Right atrial chamber dimension is mildly enlarged. Atrial Septum Intact interatrial septum visualized by color flow imaging. Aortic Valve The aortic valve is trileaflet. There is no aortic valve stenosis. There is no aortic valve regurgitation. There is mild aortic valve calcification. Pulmonic Valve The pulmonic valve is not well visualized. There is trace pulmonic regurgitation. Mitral Valve There is mild mitral valve regurgitation. Tricuspid Valve There is mild tricuspid valve regurgitation. Pericardium/Pleural There is no pericardial effusion. Inferior Vena Cava Dilated inferior vena cava with <50% collapse upon inspiration consistent with elevated right atrial pressure, 15 mmHg. Aorta The aortic root size at the sinus of Valsalva is normal. Left Ventricular Outflow Tract Name Value Normal LVOT 2D LVOT Diameter 2.1 cm LVOT Doppler LVOT Peak Gradient 2 mmHg LVOT Mean Gradient 1 mmHg LVOT VTI 14 cm LVOT VTI/AV VTI Ratio 0.6 LVOT Stroke Volume 50 ml LVOT CO 3.8 l/min LVOT CI 1.7 l/min/m2 Pulmonic Valve
[2023-04-10] MEDS: IPRATROPIUM 0.5 MG/ALBUTEROL SULFATE 2.5 MG AMPUL.NEB 3 ML INHALATION ×4 (01:04→21:30)
--- NOTE | 2023-04-10 01:41 | PC.NURSE ---
Pt called out around 0055 stating he couldn't breathe and wanted a paper bag to breathe into. RN placed pt on bipap and notified RT. SpO2 98% on 35%fio2. Pt wore bipap for less than 30 minutes, pulling it off at least twice in that time. Pt asked to have it removed and RT placed back on 2LNC. Pt now attempting to go back to sleep. On 2L NC, SpO2 95%.
[2023-04-10 04:45] LABS: Basophils Percent Auto 0.1 % (0.2-1.2); Hematocrit 48.7 % (42.0-52.0); Immature Granulocyte Absolute 0.04 K/mm3 (0.00-0.031); Immature Granulocyte Percent A 0.5 % (0-0.5); Immature Platelet Fraction Pct 9.2 % (0.9-11.2); Lymphocytes Absolute Auto 0.32 K/mm3 (0.9-3.2); Lymphocytes Percent Auto 4.4 % (18.3-44.2); Mean Corpuscular HGB Conc 30.8 g/dl (32-36); Mean Corpuscular Hemoglobin 29.6 pg (26-34); Mean Corpuscular Volume 96.1 fl (80-100); Mean Platelet Volume 11.8 fl (7.4-10.4); Monocytes Absolute Auto 0.3 K/mm3 (0.1-0.6); Monocytes Percent Auto 3.6 % (2.6-8.5); Neutrophils Absolute Auto 6.7 K/mm3 (1.3-6.7); Neutrophils Percent Auto 91.4 % (45.5-73.1); Platelet Count Result 139 k/mm3 (150-375); Red Blood Count 5.07 M/mm3 (4.6-6.20); Red Cell Distribution Width 15.4 % (11.5-14.5); White Blood Count 7.3 K/mm3 (4.5-10.0)
[2023-04-10 05:04] LABS: Alanine Aminotransferase 103 U/L (6-50); Albumin Level 3.4 g/dL (3.5-5.1); Alkaline Phosphatase 92 U/L (38-126); Anion Gap 3 mmol/L (8-16); Aspartate Amino Transferase 38 U/L (17-59); Bilirubin,Total 0.5 mg/dL (0.2-1.3); Blood Urea Nitrogen 74 mg/dL (9-20); Calcium 9.2 mg/dL (8.4-10.2); Carbon Dioxide 33 mmol/L (22-30); Chloride 98 mmol/L (98-107); Estimated CRCL calculation 63 ml/min; Estimated Glomerular Filt Rate 57; Glucose 339 mg/dL (65-110); Magnesium 2.3 mg/dL (1.6-2.3); Potassium 4.9 mmol/L (3.4-5.0); Sodium 134 mmol/L (137-145)
[2023-04-10] MEDS: LEVOTHYROXINE SODIUM 25 MCG TABLET PO (06:09)
[2023-04-10] MEDS: methylPREDNISolone SOD SUCC 40 MG VIAL IV PUSH ×3 (06:09→21:30)
[2023-04-10] MEDS: MEROPENEM 1 GM/NS 100 ML BAG IVPB (06:10)
[2023-04-10 07:50] LABS: Glucose Point of Care 276 mg/dl (65-105)
[2023-04-10] MEDS: INSULIN ASPART (*BKC) 100 UNITS/ML SUB-Q ×4 (08:57→20:45)
[2023-04-10] MEDS: ENOXAPARIN 30 MG/0.3 ML SYRINGE SUB-Q (08:59)
[2023-04-10] MEDS: FUROSEMIDE INJ 40 MG/4 ML VIAL IV PUSH ×2 (08:59→16:47)
[2023-04-10] MEDS: ARIPiprazole 10 MG TABLET PO (09:00)
[2023-04-10] MEDS: ATORVASTATIN 40 MG TABLET PO (09:00)
[2023-04-10] MEDS: DOXYCYCLINE 100 MG/NS 100 ML 100 MG/100 ML BAG IVPB ×2 (09:00→20:16)
[2023-04-10] MEDS: METOPROLOL SUCCINATE EXT REL 50 MG TABCR PO (09:01)
[2023-04-10] MEDS: FLUTICASONE PROPIONATE 0.05% NA SPR 16 GM BTL (*BKC) 1 SPRAY NASAL (09:02)
[2023-04-10] MEDS: INSULIN GLARGINE (*BKC) 100 UNITS/ML 20 UNITS SUB-Q ×2 (09:07→20:46)
--- NOTE | 2023-04-10 11:00 | PM.IMPN ---
Progress Note: A&P Assessment and Plan (1) Obesity (BMI 30-39.9): Code(s): E66.9 - Obesity, unspecified Status: Acute (2) Nicotine dependence: Code(s): F17.200 - Nicotine dependence, unspecified, uncomplicated Status: Acute (3) Cellulitis of right lower extremity: Code(s): L03.115 - Cellulitis of right lower limb Status: Acute (4) Hyperkalemia: Code(s): E87.5 - Hyperkalemia Status: Acute (5) CKD (chronic kidney disease): Code(s): N18.9 - Chronic kidney disease, unspecified Status: Acute (6) Acute exacerbation of chronic obstructive pulmonary disease: Code(s): J44.1 - Chronic obstructive pulmonary disease with (acute) exacerbation Status: Acute (7) Acute exacerbation of CHF (congestive heart failure): Qualifiers: Heart failure type: unspecified Qualified Code(s): I50.9 - Heart failure, unspecified Code(s): I50.9 - Heart failure, unspecified Status: Acute (8) Elevated troponin: Code(s): R79.89 - Other specified abnormal findings of blood chemistry Status: Acute Plan (1) Acute exacerbation of chronic obstructive pulmonary disease: ?Code(s): J44.1 - Chronic obstructive pulmonary disease with (acute) exacerbation ?Status:?Acute ?Assessment and Plan: supplemental oxygen, Anti-biotics, Bronchodilators. Current patient is on 2 L nasal cannular, pulse ox 93 (2) Elevated troponin: ?Code(s): R79.89 - Other specified abnormal findings of blood chemistry ?Status:?Acute ?Assessment and Plan: Cardiology not pursuing further inpatient evaluation Customer Acquisition Manager considers that patient does not any further cardiac workup while he is in the hospital here his plans are after discharge to travel back to [place] where he currently resides (3) CKD (chronic kidney disease): ?Code(s): N18.9 - Chronic kidney disease, unspecified ?Status:?Acute ?Assessment and Plan: Avoid nephrotoxins (4) Hyperkalemia: ?Code(s): E87.5 - Hyperkalemia ?Status:?Acute ?Assessment and Plan: Improved; (5) Cellulitis of right lower extremity: ?Code(s): L03.115 - Cellulitis of right lower limb ?Status:?Acute ?Assessment and Plan: General surgery on board; CT of new reports Subcutaneous edema over the anterior compartment. Evaluation for abscess is limited without contrast. Consult orthopedic surgeon per general surgery recommendation because of ? multiple procedures and hardware in that leg, Suspecting cellulitis and possible skin necrosis Continue antibiotics, meropenem IV (6) Nicotine dependence: ?Code(s): F17.200 - Nicotine dependence, unspecified, uncomplicated ?Status:?Acute ?Assessment and Plan: Cessation counselling, 3 minutes (7) Obesity (BMI 30-39.9): ?Code(s): E66.9 - Obesity, unspecified ?Status:?Acute ?Assessment and Plan: Diet and lifestyle modification Subjective Date/time seen: 04/10/23 11:00 Interval history: I saw and examined the patient today, patient still has some shortness breath and rest, denies chest pain. Patient has concern of pain, swelling of of right lower extremity. Patient is afebrile, Exam Narrative: ENERAL: Ill-appearing, well-nourished, and in in respiratory distress. HEAD: Normocephalic, atraumatic. EYES: PERRLA and EOMI. ENT: Nares clear.? Mucous membranes moist. NECK: Supple. CHEST: Bilateral wheeze.? Tachypneic, in moderate respiratory distress HEART:? Tachycardic.? Normal peripheral pulses. ABDOMEN: Soft, nontender, nondistended. EXTREMITIES: Normal range of motion.? No edema. SKIN: Swelling, tender, erythema of right lower extremity, with black skin NEURO: No focal deficits.? Alert and oriented x3. ? Objective Data Vital Signs Vital Signs: Vital Signs - 24 hr 04/09/23 12:02 04/09/23 14:23 04/09/23 14:33 Temperature 96.2 F L Pulse Rate 85 90 89 Re
[2023-04-10 11:36] LABS: Glucose Point of Care 362 mg/dl (65-105)
[2023-04-10] MEDS: HYDROcodone/acetaminophen (*CRX) 5-325 MG TABLET 1 TAB PO ×2 (12:09→20:55)
--- NOTE | 2023-04-10 14:32 | PM.PNGS ---
Progress Note: A&P Assessment and Plan (1) Cellulitis of right lower extremity: Code(s): L03.115 - Cellulitis of right lower limb Status: Acute Assessment and Plan: CT right knee shows some subcutaneous edema over the anterior compartment, but no acute osseous finding and no CT evidence of hardware-related complication. No evidence of abscess on CT or exam. Continue antibiotics. No indication for surgical intervention, will s/o, call with any surgical concerns. Plan I have discussed the patient's case and plan of care with Dr. Omalley. Subjective Subjective Date/Time Seen: 04/10/23 14:32 Patient reports: no new complaints and afebrile Interval history: This is a 57-year-old man with multiple medical issues who [facility] and [facility]F exacerb[facility]. He has a history of extensive right lower extremity orthopedic procedures secondary to fracture and trauma. Our service was consulted for possible cellulitis of the right lower extremity. No new complaints today. Patient denies pain in his right lower extremity today. He overall feels better. He feels the swelling in his right lower extremity has improved. Exam Const: General: comfortable and no acute distress Skin: Other: Right lower extremity with deformity and scars from multiple previous orthopedic surgeries following trauma. There is a small stable scar on the anterior lower leg that is dry with no drainage or fluctuance. Surrounding skin appears koko but no significant erythema noted. Mild edema of right dorsal foot but again no significant erythema or warmth. Objective Data Vital Signs Vital Signs: Vital Signs - 24 hr 04/09/23 14:33 04/09/23 16:43 04/09/23 16:00 Temperature 96.2 F L Pulse Rate 89 85 90 Respiratory Rate 20 22 H Blood Pressure 121/67 Pulse Oximetry 98 Oxygen Delivery Oxygen Flow Rate 04/09/23 19:37 04/09/23 19:37 04/09/23 19:44 Temperature Pulse Rate 82 82 85 Respiratory Rate 20 20 20 Blood Pressure Pulse Oximetry 96 Oxygen Delivery Nasal Cannula Oxygen Flow Rate 2 04/09/23 18:00 04/09/23 16:00 04/09/23 20:26 Temperature 96.8 F L Pulse Rate 84 82 Respiratory Rate 18 Blood Pressure 119/75 Pulse Oximetry 94 94 Oxygen Delivery Nasal Cannula Oxygen Flow Rate 2 04/09/23 20:00 04/09/23 20:00 04/09/23 22:00 Temperature Pulse Rate 83 93 Respiratory Rate Blood Pressure Pulse Oximetry 95 Oxygen Delivery Nasal Cannula Oxygen Flow Rate 2 04/09/23 23:49 04/09/23 23:51 04/10/23 00:00 Temperature 97 F L Pulse Rate 84 86 Respiratory Rate 18 Blood Pressure 139/77 Pulse Oximetry 98 95 Oxygen Delivery Nasal Cannula Oxygen Flow Rate 2 04/10/23 01:04 04/10/23 01:04 04/10/23 01:30 Temperature Pulse Rate 88 88 87 Respiratory Rate 20 25 H 20 Blood Pressure Pulse Oximetry 98 Oxygen Delivery BiPAP Oxygen Flow Rate 04/10/23 02:00 04/10/23 03:35 04/10/23 04:00 Temperature Pulse Rate 82 77 Respiratory Rate Blood Pressure Pulse Oximetry 96 Oxygen Delivery Nasal Cannula Oxygen Flow Rate 2 04/10/23 04:45 04/10/23 05:50 04/10/23 07:27 Temperature 97.2 F L 97.7 F Pulse Rate 76 77 73 Respiratory Rate 18 20 Blood Pressure 135/73 154/84 H Pulse Oximetry 95 97 Oxygen Delivery Oxygen Flow Rate 04/10/23 08:38 04/10/23 08:38 04/10/23 08:45 Temperature Pulse Rate 86 80 Respiratory Rate 20 20 Blood Pressure Pulse Oximetry 93 Oxygen Delivery Nasal Cannula Oxygen Flow Rate 2 04/10/23 09:01 04/10/23 08:00 04/10/23 10:00 Temperature Pulse Rate 97 83 80 Respiratory Rate Blood Pressure Pulse Oximetry Oxygen Delivery Oxygen Flow Rate 04/10/23 08:00 04/10/23 11:17 04/10/23 12:00 Temperature 98.2 F Pulse Rate 74 Respiratory Rate 18 Blood Pressure 120/94 H Pulse Oximetry 93 97 94 Oxygen Delivery Nasal Cannula
[2023-04-10 16:38] LABS: Glucose Point of Care 250 mg/dl (65-105)
[2023-04-10] MEDS: MEROPENEM 1 GM/NS 100 ML 1 GM/100 ML BAG IVPB (18:30)
[2023-04-10 19:58] LABS: Glucose Point of Care 366 mg/dl (65-105)
[2023-04-11] VITALS (30 sets, daily range): BP systolic 132–156; BP diastolic 57–86; PULSE 59–87; RESP 16–24; TEMP 35.8–36.6; O2SAT 92–100
[2023-04-11] MEDS: IPRATROPIUM 0.5 MG/ALBUTEROL SULFATE 2.5 MG AMPUL.NEB 3 ML INHALATION ×4 (02:20→21:04)
[2023-04-11 05:31] LABS: Basophils Percent Auto 0.3 % (0.2-1.2); Hematocrit 49.4 % (42.0-52.0); Hemoglobin 15.8 g/dL (14.0-18.0); Immature Granulocyte Absolute 0.03 K/mm3 (0.00-0.031); Immature Granulocyte Percent A 0.4 % (0-0.5); Immature Platelet Fraction Pct 8.4 % (0.9-11.2); Lymphocytes Absolute Auto 0.41 K/mm3 (0.9-3.2); Lymphocytes Percent Auto 5.5 % (18.3-44.2); Mean Corpuscular Hemoglobin 29.4 pg (26-34); Mean Platelet Volume 11.3 fl (7.4-10.4); Monocytes Absolute Auto 0.5 K/mm3 (0.1-0.6); Monocytes Percent Auto 6.1 % (2.6-8.5); Neutrophils Absolute Auto 6.5 K/mm3 (1.3-6.7); Neutrophils Percent Auto 87.7 % (45.5-73.1); Platelet Count Result 134 k/mm3 (150-375); Red Blood Count 5.37 M/mm3 (4.6-6.20); Red Cell Distribution Width 14.6 % (11.5-14.5); White Blood Count 7.4 K/mm3 (4.5-10.0)
[2023-04-11] MEDS: methylPREDNISolone SOD SUCC 40 MG VIAL IV PUSH ×3 (05:32→21:26)
[2023-04-11] MEDS: MEROPENEM 1 GM/NS 100 ML 1 GM/100 ML BAG IVPB (05:34)
[2023-04-11] MEDS: LEVOTHYROXINE SODIUM 25 MCG TABLET PO (05:39)
[2023-04-11 05:58] LABS: Alanine Aminotransferase 92 U/L (6-50); Albumin Level 3.4 g/dL (3.5-5.1); Alkaline Phosphatase 84 U/L (38-126); Aspartate Amino Transferase 39 U/L (17-59); Bilirubin,Total 0.9 mg/dL (0.2-1.3); Blood Urea Nitrogen 54 mg/dL (9-20); Calcium 9.3 mg/dL (8.4-10.2); Carbon Dioxide > 40 mmol/L (22-30); Chloride 96 mmol/L (98-107); Estimated CRCL calculation 78 ml/min; Estimated Glomerular Filt Rate > 60; Glucose 210 mg/dL (65-110); Potassium 4.3 mmol/L (3.4-5.0); Sodium 136 mmol/L (137-145)
--- NOTE | 2023-04-11 06:20 | PC.NURSE ---
Refused bipap tonight. education provided.
[2023-04-11 08:03] LABS: Glucose Point of Care 195 mg/dl (65-105)
[2023-04-11] MEDS: METOPROLOL SUCCINATE EXT REL 50 MG TABCR PO (09:01)
[2023-04-11] MEDS: ARIPiprazole 10 MG TABLET PO (09:01)
[2023-04-11] MEDS: ENOXAPARIN 30 MG/0.3 ML SYRINGE SUB-Q (09:01)
[2023-04-11] MEDS: FUROSEMIDE INJ 40 MG/4 ML VIAL IV PUSH ×2 (09:01→17:09)
[2023-04-11] MEDS: DOXYCYCLINE 100 MG/NS 100 ML 100 MG/100 ML BAG IVPB ×2 (09:02→20:53)
[2023-04-11] MEDS: INSULIN GLARGINE (*BKC) 100 UNITS/ML 20 UNITS SUB-Q (09:02)
[2023-04-11] MEDS: ATORVASTATIN 40 MG TABLET PO (09:03)
[2023-04-11] MEDS: FLUTICASONE PROPIONATE 0.05% NA SPR 16 GM BTL (*BKC) 1 SPRAY NASAL (09:03)
--- NOTE | 2023-04-11 10:04 | PM.IMPN ---
Progress Note: A&P Assessment and Plan (1) Obesity (BMI 30-39.9): Code(s): E66.9 - Obesity, unspecified Status: Acute (2) Nicotine dependence: Code(s): F17.200 - Nicotine dependence, unspecified, uncomplicated Status: Acute (3) Cellulitis of right lower extremity: Code(s): L03.115 - Cellulitis of right lower limb Status: Acute (4) Hyperkalemia: Code(s): E87.5 - Hyperkalemia Status: Acute (5) CKD (chronic kidney disease): Code(s): N18.9 - Chronic kidney disease, unspecified Status: Acute (6) Acute exacerbation of chronic obstructive pulmonary disease: Code(s): J44.1 - Chronic obstructive pulmonary disease with (acute) exacerbation Status: Acute (7) Acute exacerbation of CHF (congestive heart failure): Qualifiers: Heart failure type: unspecified Qualified Code(s): I50.9 - Heart failure, unspecified Code(s): I50.9 - Heart failure, unspecified Status: Acute (8) Elevated troponin: Code(s): R79.89 - Other specified abnormal findings of blood chemistry Status: Acute Plan (1) Acute exacerbation of chronic obstructive pulmonary disease: ?Code(s): J44.1 - Chronic obstructive pulmonary disease with (acute) exacerbation ?Status:?Acute ?Assessment and Plan: supplemental oxygen, Anti-biotics, Bronchodilators. Current patient is on 2 L nasal cannular, pulse ox 93 (2) Elevated troponin: ?Code(s): R79.89 - Other specified abnormal findings of blood chemistry ?Status:?Acute ?Assessment and Plan: Cardiology not pursuing further inpatient evaluation Oceanic Sciences Professor considers that patient does not any further cardiac workup while he is in the hospital here his plans are after discharge to travel back to [place] where he currently resides (3) CKD (chronic kidney disease): ?Code(s): N18.9 - Chronic kidney disease, unspecified ?Status:?Acute ?Assessment and Plan: Avoid nephrotoxins (4) Hyperkalemia: ?Code(s): E87.5 - Hyperkalemia ?Status:?Acute ?Assessment and Plan: Improved; (5) Cellulitis of right lower extremity: ?Code(s): L03.115 - Cellulitis of right lower limb ?Status:?Acute ?Assessment and Plan: General surgery on board; CT of new reports Subcutaneous edema over the anterior compartment. Evaluation for abscess is limited without contrast. Consult orthopedic surgeon per general surgery recommendation because of ? multiple procedures and hardware in that leg, Suspecting cellulitis and possible skin necrosis Continue switch from meropenem to cefepime IV (6) Nicotine dependence: ?Code(s): F17.200 - Nicotine dependence, unspecified, uncomplicated ?Status:?Acute ?Assessment and Plan: Cessation counselling, 3 minutes (7) Obesity (BMI 30-39.9): ?Code(s): E66.9 - Obesity, unspecified ?Status:?Acute ?Assessment and Plan: Diet and lifestyle modification Subjective Date/time seen: 04/11/23 10:04 Interval history: I saw and examined the patient today, patient feels better today, denies shortness breath, denies chest pain. Patient has concern of pain, swelling of of right lower extremity. Patient is afebrile, Exam Narrative: ENERAL: Ill-appearing, well-nourished, and in in respiratory distress. HEAD: Normocephalic, atraumatic. EYES: PERRLA and EOMI. ENT: Nares clear.? Mucous membranes moist. NECK: Supple. CHEST: Bilateral wheeze.? Tachypneic, in moderate respiratory distress HEART:? Tachycardic.? Normal peripheral pulses. ABDOMEN: Soft, nontender, nondistended. EXTREMITIES: Normal range of motion.? No edema. SKIN: Swelling, tender, erythema of right lower extremity, with black skin NEURO: No focal deficits.? Alert and oriented x3. ? Objective Data Vital Signs Vital Signs: Vital Signs - 24 hr 04/10/23 11:17 04/10/23 12:00 04/10/23 12:00 Temperature 98.2 F Pulse Rate
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
[2023-04-11 12:05] LABS: Glucose Point of Care 320 mg/dl (65-105)
[2023-04-11] MEDS: INSULIN ASPART (*BKC) 100 UNITS/ML SUB-Q ×2 (12:16→17:09)
[2023-04-11] MEDS: CEFEPIME 2 GM/NS 50 ML 2 GM/50 ML BAG IVPB ×2 (14:38→23:33)
[2023-04-11] MEDS: HYDROcodone/acetaminophen (*CRX) 5-325 MG TABLET 1 TAB PO ×2 (14:49→20:59)
[2023-04-11 16:02] LABS: Glucose Point of Care 280 mg/dl (65-105)
[2023-04-11 20:38] LABS: Glucose Point of Care 456 mg/dl (65-105)
[2023-04-11] MEDS: INSULIN HUMAN REGULAR (*BKC) 100 UNITS/ML 12 UNITS SUB-Q (21:01)
[2023-04-11 22:05] LABS: Glucose Point of Care 359 mg/dl (65-105)
--- NOTE | 2023-04-11 22:50 | PC.NURSE ---
patient's POC glucose was 456 @ HS. Received orders from Dr. Zhong to administer 12 units of regular insulin. Follow up blood sugar 356. Trevin notified with no new orders.
[2023-04-12] VITALS (22 sets, daily range): BP systolic 130–148; BP diastolic 62–97; PULSE 59–113; RESP 18–24; TEMP 36.4–36.8; O2SAT 91–98
[2023-04-12] MEDS: IPRATROPIUM 0.5 MG/ALBUTEROL SULFATE 2.5 MG AMPUL.NEB 3 ML INHALATION ×4 (02:11→20:06)
[2023-04-12 04:44] LABS: Basophils Percent Auto 0.2 % (0.2-1.2); Hematocrit 53.2 % (42.0-52.0); Hemoglobin 17.2 g/dL (14.0-18.0); Immature Granulocyte Absolute 0.05 K/mm3 (0.00-0.031); Immature Granulocyte Percent A 0.6 % (0-0.5); Immature Platelet Fraction Pct 8.9 % (0.9-11.2); Lymphocytes Absolute Auto 0.44 K/mm3 (0.9-3.2); Lymphocytes Percent Auto 5.4 % (18.3-44.2); Mean Corpuscular HGB Conc 32.3 g/dl (32-36); Mean Corpuscular Hemoglobin 29.4 pg (26-34); Mean Corpuscular Volume 90.9 fl (80-100); Mean Platelet Volume 11.6 fl (7.4-10.4); Monocytes Absolute Auto 0.4 K/mm3 (0.1-0.6); Monocytes Percent Auto 4.7 % (2.6-8.5); Neutrophils Absolute Auto 7.2 K/mm3 (1.3-6.7); Neutrophils Percent Auto 89.1 % (45.5-73.1); Platelet Count Result 140 k/mm3 (150-375); Red Blood Count 5.85 M/mm3 (4.6-6.20); Red Cell Distribution Width 14.2 % (11.5-14.5); White Blood Count 8.1 K/mm3 (4.5-10.0)
[2023-04-12 05:00] LABS: Alanine Aminotransferase 91 U/L (6-50); Albumin Level 3.5 g/dL (3.5-5.1); Alkaline Phosphatase 86 U/L (38-126); Aspartate Amino Transferase 40 U/L (17-59); Bilirubin,Total 1.2 mg/dL (0.2-1.3); Blood Urea Nitrogen 49 mg/dL (9-20); Calcium 9.4 mg/dL (8.4-10.2); Carbon Dioxide > 40 mmol/L (22-30); Chloride 91 mmol/L (98-107); Estimated CRCL calculation 78 ml/min; Estimated Glomerular Filt Rate > 60; Glucose 188 mg/dL (65-110); Potassium 3.9 mmol/L (3.4-5.0); Sodium 134 mmol/L (137-145)
--- NOTE | 2023-04-12 05:35 | PC.NURSE ---
Patient has not been snacking tonight d/t POC glucose levels. Patient has insisted the bipap be taken off several times for short periods. Education and encouragement/reassurance given.
[2023-04-12] MEDS: methylPREDNISolone SOD SUCC 40 MG VIAL IV PUSH ×3 (06:22→20:57)
[2023-04-12] MEDS: LEVOTHYROXINE SODIUM 25 MCG TABLET PO (06:26)
[2023-04-12 07:52] LABS: Glucose Point of Care 223 mg/dl (65-105)
--- NOTE | 2023-04-12 08:22 | PM.IMPN ---
Progress Note: A&P Assessment and Plan (1) Obesity (BMI 30-39.9): Code(s): E66.9 - Obesity, unspecified Status: Acute (2) Nicotine dependence: Code(s): F17.200 - Nicotine dependence, unspecified, uncomplicated Status: Acute (3) Cellulitis of right lower extremity: Code(s): L03.115 - Cellulitis of right lower limb Status: Acute (4) Hyperkalemia: Code(s): E87.5 - Hyperkalemia Status: Acute (5) CKD (chronic kidney disease): Code(s): N18.9 - Chronic kidney disease, unspecified Status: Acute (6) Acute exacerbation of chronic obstructive pulmonary disease: Code(s): J44.1 - Chronic obstructive pulmonary disease with (acute) exacerbation Status: Acute (7) Acute exacerbation of CHF (congestive heart failure): Qualifiers: Heart failure type: unspecified Qualified Code(s): I50.9 - Heart failure, unspecified Code(s): I50.9 - Heart failure, unspecified Status: Acute (8) Elevated troponin: Code(s): R79.89 - Other specified abnormal findings of blood chemistry Status: Acute Plan (1) Acute exacerbation of chronic obstructive pulmonary disease: ?Code(s): J44.1 - Chronic obstructive pulmonary disease with (acute) exacerbation ?Status:?Acute ?Assessment and Plan: supplemental oxygen, Anti-biotics, Bronchodilators. Current patient is on 2 L nasal cannular, pulse ox 93 Fluid overloaded Possible acute on chronic diastolic heart failure X-ray showed pulmonary edema upon arrival Patient has received Lasix 40 mg b.i.d. IV push since 0 07/06 Fluid overload resolved Discontinue furosemide IV 04/12 (2) Elevated troponin: ?Code(s): R79.89 - Other specified abnormal findings of blood chemistry ?Status:?Acute ?Assessment and Plan: Cardiology not pursuing further inpatient evaluation Avionics Manager considers that patient does not any further cardiac workup while he is in the hospital here his plans are after discharge to travel back to [place] where he currently resides (3) CKD (chronic kidney disease): ?Code(s): N18.9 - Chronic kidney disease, unspecified ?Status:?Acute ?Assessment and Plan: Avoid nephrotoxins Stable (4) Hyperkalemia: ?Code(s): E87.5 - Hyperkalemia ?Status:?Acute ?Assessment and Plan: Resolved (5) Cellulitis of right lower extremity: ?Code(s): L03.115 - Cellulitis of right lower limb ?Status:?Acute ?Assessment and Plan: Consult general surgeon and also please surgeon CT of new reports Subcutaneous edema over the anterior compartment. Evaluation for abscess is limited without contrast. Consult orthopedic surgeon per general surgery recommendation because of ? multiple procedures and hardware in that leg, Suspecting cellulitis and possible skin necrosis Continue switch from meropenem to cefepime IV 04/11 Appreciate orthopedic surgeon's consultation, no ongoing signs of deep infection or osteomyelitis Continue doxycycline 100 mg q.12 hour IV 04/08, will change to Ancef 2 g q.8 hours IV till April 14 (6) Nicotine dependence: ?Code(s): F17.200 - Nicotine dependence, unspecified, uncomplicated ?Status:?Acute ?Assessment and Plan: Cessation counselling, 3 minutes (7) Obesity (BMI 30-39.9): ?Code(s): E66.9 - Obesity, unspecified ?Status:?Acute ?Assessment and Plan: Diet and lifestyle modification Subjective Date/time seen: 04/12/23 08:22 Interval history: I saw and examined the patient today, patient feels better today, denies shortness breath, denies chest pain.swelling of of right lower extremity has improved. Patient is afebrile, Exam Narrative: ENERAL: Ill-appearing, well-nourished, and in in respiratory distress. HEAD: Normocephalic, atraumatic. EYES: PERRLA and EOMI. ENT: Nares clear.? Mucous membranes moist. NECK: Supple. CHEST: Bilateral wheeze.? Tachypneic, in mo
[2023-04-12] MEDS: HYDROcodone/acetaminophen (*CRX) 5-325 MG TABLET 1 TAB PO (08:40)
[2023-04-12] MEDS: DOXYCYCLINE 100 MG/NS 100 ML 100 MG/100 ML BAG IVPB ×2 (08:41→20:52)
[2023-04-12] MEDS: METOPROLOL SUCCINATE EXT REL 50 MG TABCR PO (08:41)
[2023-04-12] MEDS: ARIPiprazole 10 MG TABLET PO (08:41)
[2023-04-12] MEDS: FLUTICASONE PROPIONATE 0.05% NA SPR 16 GM BTL (*BKC) 1 SPRAY NASAL (08:41)
[2023-04-12] MEDS: ATORVASTATIN 40 MG TABLET PO (08:41)
[2023-04-12] MEDS: INSULIN ASPART (*BKC) 100 UNITS/ML SUB-Q ×5 (08:43→20:51)
[2023-04-12] MEDS: INSULIN GLARGINE (*BKC) 100 UNITS/ML 20 UNITS SUB-Q ×2 (08:43→20:52)
[2023-04-12] MEDS: ENOXAPARIN 30 MG/0.3 ML SYRINGE SUB-Q (08:43)
[2023-04-12] MEDS: ceFAZolin 2 GM/D5W 50 ML 2 GM/50 ML BAG IVPB ×3 (10:13→22:02)
[2023-04-12 12:17] LABS: Glucose Point of Care 391 mg/dl (65-105)
[2023-04-12] MEDS: NICOTINE (*PBKC) 21 MG PATCH 1 PATCH TRANSDERM (12:34)
--- NOTE | 2023-04-12 13:11 | P.CDI_ITS ---
CDI Query Clarification Request Documented history of CHF. CHF noted in the assessment and plan. Elevated BNP on 04/07/23 lab work. Bumex listed as a home medication. Patient receiving Lasix. 04/07/23 Chest xray notes pulmonary edema. 04/10/23 Echo notes EF 50-55% and grade 1 diastolic dysfunction. Please specify type and acuity of heart failure if known. * Acute * Chronic * Acute on Chronic * Unknown * Systolic * Diastolic * Combined Systolic and Diastolic * Unknown <Darlene Duong RN - Last Filed: 04/12/23 13:15> Clarified Diagnosis Clarified Diagnosis: acute on chronic diastolic heart failure <Rian Bazzi MD - Last Filed: 04/12/23 17:01>
[2023-04-12 16:33] LABS: Glucose Point of Care 434 mg/dl (65-105)
[2023-04-12 21:04] LABS: Glucose Point of Care 283 mg/dl (65-105)
[2023-04-13] VITALS (11 sets, daily range): BP systolic 147–153; BP diastolic 73–76; PULSE 64–80; RESP 18–20; TEMP 36.6; O2SAT 92–98
[2023-04-13] MEDS: HYDROcodone/acetaminophen (*CRX) 5-325 MG TABLET 1 TAB PO ×3 (01:46→18:45)
[2023-04-13] MEDS: IPRATROPIUM 0.5 MG/ALBUTEROL SULFATE 2.5 MG AMPUL.NEB 3 ML INHALATION ×4 (02:41→20:10)
[2023-04-13 04:53] LABS: Basophils Percent Auto 0.2 % (0.2-1.2); Hematocrit 54.3 % (42.0-52.0); Hemoglobin 17.5 g/dL (14.0-18.0); Immature Granulocyte Absolute 0.06 K/mm3 (0.00-0.031); Immature Granulocyte Percent A 0.7 % (0-0.5); Immature Platelet Fraction Pct 8.9 % (0.9-11.2); Lymphocytes Absolute Auto 0.45 K/mm3 (0.9-3.2); Lymphocytes Percent Auto 5.1 % (18.3-44.2); Mean Corpuscular HGB Conc 32.2 g/dl (32-36); Mean Corpuscular Hemoglobin 29.2 pg (26-34); Mean Corpuscular Volume 90.7 fl (80-100); Mean Platelet Volume 11.3 fl (7.4-10.4); Monocytes Absolute Auto 0.3 K/mm3 (0.1-0.6); Monocytes Percent Auto 3.8 % (2.6-8.5); Neutrophils Absolute Auto 7.9 K/mm3 (1.3-6.7); Neutrophils Percent Auto 90.2 % (45.5-73.1); Platelet Count Result 138 k/mm3 (150-375); Red Blood Count 5.99 M/mm3 (4.6-6.20); Red Cell Distribution Width 14.2 % (11.5-14.5); White Blood Count 8.8 K/mm3 (4.5-10.0)
[2023-04-13 05:16] LABS: Alanine Aminotransferase 53 U/L (6-50); Albumin Level 3.3 g/dL (3.5-5.1); Alkaline Phosphatase 80 U/L (38-126); Anion Gap 4 mmol/L (8-16); Aspartate Amino Transferase 29 U/L (17-59); Bilirubin,Total 1.1 mg/dL (0.2-1.3); Blood Urea Nitrogen 52 mg/dL (9-20); Calcium 9.1 mg/dL (8.4-10.2); Carbon Dioxide 37 mmol/L (22-30); Chloride 91 mmol/L (98-107); Estimated CRCL calculation 78 ml/min; Estimated Glomerular Filt Rate > 60; Glucose 194 mg/dL (65-110); Sodium 132 mmol/L (137-145)
--- NOTE | 2023-04-13 05:30 | PC.NURSE ---
Pt transfered to [facility] via wheelchair. Pt orientated to new room and the call light. Pt in bed with call light within reach
--- NOTE | 2023-04-13 05:33 | PC.NURSE ---
This patient, Oseas Arredondo, was transferred to [[id number]] on 04/13/23 at 0530. Personal belongings sent with patient. Report given to [MIGUEL Mejia]. Appropriate documentation sent with patient.
[2023-04-13] MEDS: LEVOTHYROXINE SODIUM 25 MCG TABLET PO (05:37)
[2023-04-13] MEDS: ceFAZolin 2 GM/D5W 50 ML 2 GM/50 ML BAG IVPB ×3 (05:37→22:09)
[2023-04-13] MEDS: methylPREDNISolone SOD SUCC 40 MG VIAL IV PUSH ×3 (05:37→22:09)
[2023-04-13 07:24] LABS: Glucose Point of Care 239 mg/dl (65-105)
--- NOTE | 2023-04-13 08:43 | PM.IMPN ---
Progress Note: A&P Assessment and Plan (1) Obesity (BMI 30-39.9): Code(s): E66.9 - Obesity, unspecified Status: Acute (2) Nicotine dependence: Code(s): F17.200 - Nicotine dependence, unspecified, uncomplicated Status: Acute (3) Cellulitis of right lower extremity: Code(s): L03.115 - Cellulitis of right lower limb Status: Acute (4) Hyperkalemia: Code(s): E87.5 - Hyperkalemia Status: Acute (5) CKD (chronic kidney disease): Code(s): N18.9 - Chronic kidney disease, unspecified Status: Acute (6) Acute exacerbation of chronic obstructive pulmonary disease: Code(s): J44.1 - Chronic obstructive pulmonary disease with (acute) exacerbation Status: Acute (7) Acute exacerbation of CHF (congestive heart failure): Qualifiers: Heart failure type: unspecified Qualified Code(s): I50.9 - Heart failure, unspecified Code(s): I50.9 - Heart failure, unspecified Status: Acute (8) Elevated troponin: Code(s): R79.89 - Other specified abnormal findings of blood chemistry Status: Acute Plan (1) Acute exacerbation of chronic obstructive pulmonary disease: ?Code(s): J44.1 - Chronic obstructive pulmonary disease with (acute) exacerbation ?Status:?Acute ?Assessment and Plan: supplemental oxygen, Anti-biotics, Bronchodilators. Current patient is on 2 L nasal cannular, pulse ox 93 Fluid overloaded Possible acute on chronic diastolic heart failure X-ray showed pulmonary edema upon arrival Patient has received Lasix 40 mg b.i.d. IV push since 0 07/06 Fluid overload resolved Discontinue furosemide IV 04/12 (2) Elevated troponin: ?Code(s): R79.89 - Other specified abnormal findings of blood chemistry ?Status:?Acute ?Assessment and Plan: Cardiology not pursuing further inpatient evaluation Heavy Rail Train Operator considers that patient does not any further cardiac workup while he is in the hospital here his plans are after discharge to travel back to [place] where he currently resides (3) CKD (chronic kidney disease): ?Code(s): N18.9 - Chronic kidney disease, unspecified ?Status:?Acute ?Assessment and Plan: Avoid nephrotoxins Stable (4) Hyperkalemia: ?Code(s): E87.5 - Hyperkalemia ?Status:?Acute ?Assessment and Plan: Resolved (5) Cellulitis of right lower extremity: ?Code(s): L03.115 - Cellulitis of right lower limb ?Status:?Acute ?Assessment and Plan: Consult general surgeon and also please surgeon CT of new reports Subcutaneous edema over the anterior compartment. Evaluation for abscess is limited without contrast. Consult orthopedic surgeon per general surgery recommendation because of ? multiple procedures and hardware in that leg, Suspecting cellulitis and possible skin necrosis Continue switch from meropenem to cefepime IV 04/11 Appreciate orthopedic surgeon's consultation, no ongoing signs of deep infection or osteomyelitis Cellulitis continues to improve, continue doxycycline 100 mg q.12 hour IV 04/08, will change to Ancef 2 g q.8 hours IV till April 14 (6) Nicotine dependence: ?Code(s): F17.200 - Nicotine dependence, unspecified, uncomplicated ?Status:?Acute ?Assessment and Plan: Cessation counselling, 3 minutes (7) Obesity (BMI 30-39.9): ?Code(s): E66.9 - Obesity, unspecified ?Status:?Acute ?Assessment and Plan: Diet and lifestyle modification Subjective Date/time seen: 04/13/23 08:43 Interval history: I saw and examined the patient today, patient feels better today, denies shortness breath, denies chest pain. Cellulitis of right lower extremity continue to improve. Patient is afebrile, Exam Narrative: ENERAL: Ill-appearing, well-nourished, and in in respiratory distress. HEAD: Normocephalic, atraumatic. EYES: PERRLA and EOMI. ENT: Nares clear.? Mucous membranes moist. NECK: Supple. CH
[2023-04-13] MEDS: ENOXAPARIN 40 MG/0.4 ML SYRINGE SUB-Q (08:50)
[2023-04-13] MEDS: ARIPiprazole 10 MG TABLET PO (08:50)
[2023-04-13] MEDS: METOPROLOL SUCCINATE EXT REL 50 MG TABCR PO (08:50)
[2023-04-13] MEDS: ATORVASTATIN 40 MG TABLET PO (08:50)
[2023-04-13] MEDS: DOXYCYCLINE 100 MG/NS 100 ML 100 MG/100 ML BAG IVPB ×2 (08:51→20:07)
[2023-04-13] MEDS: INSULIN GLARGINE (*BKC) 100 UNITS/ML 20 UNITS SUB-Q ×2 (08:52→20:08)
[2023-04-13] MEDS: INSULIN ASPART (*BKC) 100 UNITS/ML SUB-Q ×6 (08:52→20:08)
[2023-04-13] MEDS: NICOTINE (*PBKC) 21 MG PATCH 1 PATCH TRANSDERM (08:54)
[2023-04-13] MEDS: FLUTICASONE PROPIONATE 0.05% NA SPR 16 GM BTL (*BKC) 1 SPRAY NASAL (11:46)
[2023-04-13 12:10] LABS: Glucose Point of Care 318 mg/dl (65-105)
[2023-04-13 17:16] LABS: Glucose Point of Care 196 mg/dl (65-105)
[2023-04-13 19:47] LABS: Glucose Point of Care 319 mg/dl (65-105)
[2023-04-14] VITALS (8 sets, daily range): BP systolic 142; BP diastolic 74; PULSE 70–82; RESP 18–20; TEMP 36.4; O2SAT 93–97
[2023-04-14] MEDS: HYDROcodone/acetaminophen (*CRX) 5-325 MG TABLET 1 TAB PO (01:16)
[2023-04-14] MEDS: IPRATROPIUM 0.5 MG/ALBUTEROL SULFATE 2.5 MG AMPUL.NEB 3 ML INHALATION ×2 (02:23→07:43)
[2023-04-14] MEDS: ASPIRIN 81 MG CHEWABLE TABLET PO (04:47)
--- NOTE | 2023-04-14 04:54 | PC.NURSE ---
patient requested aspirin 81 mg PO for RLE pain, informed MD Zhong, aspirin 81 mg Po ordered once.
[2023-04-14] MEDS: ceFAZolin 2 GM/D5W 50 ML 2 GM/50 ML BAG IVPB (05:16)
[2023-04-14] MEDS: LEVOTHYROXINE SODIUM 25 MCG TABLET PO (05:16)
[2023-04-14] MEDS: methylPREDNISolone SOD SUCC 40 MG VIAL IV PUSH (05:16)
[2023-04-14 06:27] LABS: Basophils Percent Auto 0.2 % (0.2-1.2); Hematocrit 58.6 % (42.0-52.0); Hemoglobin 18.9 g/dL (14.0-18.0); Immature Granulocyte Absolute 0.06 K/mm3 (0.00-0.031); Immature Granulocyte Percent A 0.6 % (0-0.5); Lymphocytes Absolute Auto 0.43 K/mm3 (0.9-3.2); Lymphocytes Percent Auto 4.4 % (18.3-44.2); Mean Corpuscular HGB Conc 32.3 g/dl (32-36); Mean Corpuscular Hemoglobin 29.1 pg (26-34); Mean Corpuscular Volume 90.3 fl (80-100); Mean Platelet Volume 11.6 fl (7.4-10.4); Monocytes Absolute Auto 0.3 K/mm3 (0.1-0.6); Monocytes Percent Auto 2.9 % (2.6-8.5); Neutrophils Absolute Auto 9.1 K/mm3 (1.3-6.7); Neutrophils Percent Auto 91.9 % (45.5-73.1); Platelet Count Result 144 k/mm3 (150-375); Red Blood Count 6.49 M/mm3 (4.6-6.20); Red Cell Distribution Width 15.4 % (11.5-14.5); White Blood Count 9.9 K/mm3 (4.5-10.0)
[2023-04-14 06:30] LABS: Alanine Aminotransferase 40 U/L (6-50); Albumin Level 4.3 g/dL (3.5-5.1); Alkaline Phosphatase 123 U/L (38-126); Anion Gap 8 mmol/L (8-16); Aspartate Amino Transferase 41 U/L (17-59); Bilirubin,Total 1.2 mg/dL (0.2-1.3); Blood Urea Nitrogen 54 mg/dL (9-20); Calcium 9.4 mg/dL (8.4-10.2); Carbon Dioxide 36 mmol/L (22-30); Chloride 88 mmol/L (98-107); Estimated CRCL calculation 71 ml/min; Estimated Glomerular Filt Rate > 60; Glucose 333 mg/dL (65-110); Sodium 132 mmol/L (137-145)
[2023-04-14 07:38] LABS: Glucose Point of Care 294 mg/dl (65-105)
[2023-04-14] MEDS: ARIPiprazole 10 MG TABLET PO (08:15)
[2023-04-14] MEDS: ENOXAPARIN 40 MG/0.4 ML SYRINGE SUB-Q (08:15)
[2023-04-14] MEDS: ATORVASTATIN 40 MG TABLET PO (08:15)
[2023-04-14] MEDS: METOPROLOL SUCCINATE EXT REL 50 MG TABCR PO (08:15)
[2023-04-14] MEDS: DOXYCYCLINE 100 MG/NS 100 ML 100 MG/100 ML BAG IVPB (08:16)
[2023-04-14] MEDS: INSULIN GLARGINE (*BKC) 100 UNITS/ML 20 UNITS SUB-Q (08:17)
[2023-04-14] MEDS: INSULIN ASPART (*BKC) 100 UNITS/ML SUB-Q ×4 (08:18→12:35)
--- NOTE | 2023-04-14 08:23 | PM.IMPN ---
Progress Note: A&P Assessment and Plan (1) Obesity (BMI 30-39.9): Code(s): E66.9 - Obesity, unspecified Status: Acute (2) Nicotine dependence: Code(s): F17.200 - Nicotine dependence, unspecified, uncomplicated Status: Acute (3) Cellulitis of right lower extremity: Code(s): L03.115 - Cellulitis of right lower limb Status: Acute (4) Hyperkalemia: Code(s): E87.5 - Hyperkalemia Status: Acute (5) CKD (chronic kidney disease): Code(s): N18.9 - Chronic kidney disease, unspecified Status: Acute (6) Acute exacerbation of chronic obstructive pulmonary disease: Code(s): J44.1 - Chronic obstructive pulmonary disease with (acute) exacerbation Status: Acute (7) Acute exacerbation of CHF (congestive heart failure): Qualifiers: Heart failure type: unspecified Qualified Code(s): I50.9 - Heart failure, unspecified Code(s): I50.9 - Heart failure, unspecified Status: Acute (8) Elevated troponin: Code(s): R79.89 - Other specified abnormal findings of blood chemistry Status: Acute Plan (1) Acute exacerbation of chronic obstructive pulmonary disease: ?Code(s): J44.1 - Chronic obstructive pulmonary disease with (acute) exacerbation ?Status:?Acute ?Assessment and Plan: supplemental oxygen, Anti-biotics, Bronchodilators. Current patient is on 2 L nasal cannular, pulse ox 93 Fluid overloaded Possible acute on chronic diastolic heart failure X-ray showed pulmonary edema upon arrival Patient has received Lasix 40 mg b.i.d. IV push since 0 07/06 Fluid overload resolved Discontinue furosemide IV 04/12 (2) Elevated troponin: ?Code(s): R79.89 - Other specified abnormal findings of blood chemistry ?Status:?Acute ?Assessment and Plan: Cardiology not pursuing further inpatient evaluation Shoe Repairer Helper considers that patient does not any further cardiac workup while he is in the hospital here his plans are after discharge to travel back to [place] where he currently resides (3) CKD (chronic kidney disease): ?Code(s): N18.9 - Chronic kidney disease, unspecified ?Status:?Acute ?Assessment and Plan: Avoid nephrotoxins Stable (4) Hyperkalemia: ?Code(s): E87.5 - Hyperkalemia ?Status:?Acute ?Assessment and Plan: Resolved (5) Cellulitis of right lower extremity: ?Code(s): L03.115 - Cellulitis of right lower limb ?Status:?Acute ?Assessment and Plan: Consult general surgeon and also please surgeon CT of new reports Subcutaneous edema over the anterior compartment. Evaluation for abscess is limited without contrast. Consult orthopedic surgeon per general surgery recommendation because of ? multiple procedures and hardware in that leg, Suspecting cellulitis and possible skin necrosis Continue switch from meropenem to cefepime IV 04/11 Appreciate orthopedic surgeon's consultation, no ongoing signs of deep infection or osteomyelitis Cellulitis continues to improve, switch from doxycycline 100 mg q.12 hour IV 04/08, will change to Ancef 2 g q.8 hours IV to doxycycline p.o. and Omnicef dear p.o. for 3 more days (6) Nicotine dependence: ?Code(s): F17.200 - Nicotine dependence, unspecified, uncomplicated ?Status:?Acute ?Assessment and Plan: Cessation counselling, Provide nicotine patch at discharge (7) Obesity (BMI 30-39.9): ?Code(s): E66.9 - Obesity, unspecified ?Status:?Acute ?Assessment and Plan: Diet and lifestyle modification Subjective Date/time seen: 04/14/23 08:23 Interval history: I saw and examined the patient today, patient feels comfortable today, patient denies shortness breath, denies chest pain. Cellulitis of right lower extremity continue to improve. Patient is afebrile, Exam Narrative: ENERAL: Pleasant person well-nourished, and in in respiratory distress. HEAD: Normocephalic, atraumatic.
--- NOTE | 2023-04-14 08:31 | PM.DS ---
DS: Admitting Diagnosis Discharge Date 04/14/23 Admitting Diagnosis (1) Obesity (BMI 30-39.9): ?Code(s): E66.9 - Obesity, unspecified ?Status:?Acute (2) Nicotine dependence: ?Code(s): F17.200 - Nicotine dependence, unspecified, uncomplicated ?Status:?Acute (3) Cellulitis of right lower extremity: ?Code(s): L03.115 - Cellulitis of right lower limb ?Status:?Acute (4) Hyperkalemia: ?Code(s): E87.5 - Hyperkalemia ?Status:?Acute (5) CKD (chronic kidney disease): ?Code(s): N18.9 - Chronic kidney disease, unspecified ?Status:?Acute (6) Acute exacerbation of chronic obstructive pulmonary disease: ?Code(s): J44.1 - Chronic obstructive pulmonary disease with (acute) exacerbation ?Status:?Acute (7) Acute exacerbation of CHF (congestive heart failure): ?Qualifiers: ?Heart failure type:?unspecified? Qualified Code(s):?I50.9 - Heart failure, unspecified ?Code(s): I50.9 - Heart failure, unspecified ?Status:?Acute (8) Elevated troponin: ?Code(s): R79.89 - Other specified abnormal findings of blood chemistry ?Status:?Acute DS: Discharge Diagnosis Discharge Diagnosis (1) Obesity (BMI 30-39.9): Code(s): E66.9 - Obesity, unspecified Status: Acute (2) Nicotine dependence: Code(s): F17.200 - Nicotine dependence, unspecified, uncomplicated Status: Acute (3) Cellulitis of right lower extremity: Code(s): L03.115 - Cellulitis of right lower limb Status: Acute (4) Hyperkalemia: Code(s): E87.5 - Hyperkalemia Status: Acute (5) CKD (chronic kidney disease): Code(s): N18.9 - Chronic kidney disease, unspecified Status: Acute (6) Acute exacerbation of chronic obstructive pulmonary disease: Code(s): J44.1 - Chronic obstructive pulmonary disease with (acute) exacerbation Status: Acute (7) Acute exacerbation of CHF (congestive heart failure): Qualifiers: Heart failure type: unspecified Qualified Code(s): I50.9 - Heart failure, unspecified Code(s): I50.9 - Heart failure, unspecified Status: Acute (8) Elevated troponin: Code(s): R79.89 - Other specified abnormal findings of blood chemistry Status: Acute DS: Summary Hospital Course Hospital Course: Per H&P, patient is a 57-year-old male with history of COPD, CHF, CKD here from [facility] with shortness of breath.? He states that began in February but worsened today.? He does note that he has a history of COPD and has had to be intubated in the past.? He notes recent hospitalization for several months out of state for bilateral pneumonia and blood per rectum.? He denies any current antibiotic use.? He has not been using his inhalers recently.? He notes some chest tightness which also began today. Denies fever or chills. He note he typically takes lasix, has been out of it for over a year. The following med issues have been addressed during hospitalization (1) Acute exacerbation of chronic obstructive pulmonary disease: ?Code(s): J44.1 - Chronic obstructive pulmonary disease with (acute) exacerbation ?Status:?Acute ?Assessment and Plan: supplemental oxygen, Anti-biotics, Bronchodilators. Current patient is on 2 L nasal cannular, pulse ox 93 Fluid overloaded Possible acute on chronic diastolic heart failure X-ray showed pulmonary edema upon arrival Patient has received Lasix 40 mg b.i.d. IV push since 0 07/06 Fluid overload resolved Discontinue furosemide IV 04/12 (2) Elevated troponin: ?Code(s): R79.89 - Other specified abnormal findings of blood chemistry ?Status:?Acute ?Assessment and Plan: Cardiology not pursuing further inpatient evaluation Tobacco Packing Machine Operator considers that patient does not any further cardiac workup while he is in the hospital here his plans are after discharge to travel back to [place] where he currently resides (3) CKD (ch
[2023-04-14 12:09] LABS: Glucose Point of Care 288 mg/dl (65-105)
== END 2023-04-14 13:41 | disposition home or self-care (01) | DRG 194 ==
LOC: ANHED 19:45 → ANHIMU 21:08 → ANH3MEDSUR 04-13 05:30
PROVIDERS: Internal Medicine; Student in an Organized Health Care Education/Training Program; Admitting Provider Student in an Organized Health Care Education/Training Program; Emergency Provider Student in an Organized Health Care Education/Training Program; Visit Provider Hospitalist
DX: I50.33 Acute on chronic diastolic (congestive) heart failure (principal); J44.1 Chronic obstructive pulmonary disease with (acute) exacerbation; L03.115 Cellulitis of right lower limb; N18.9 Chronic kidney disease, unspecified; E11.22 Type 2 diabetes mellitus with diabetic chronic kidney disease; E87.5 Hyperkalemia; E66.9 Obesity, unspecified; M81.8 Other osteoporosis without current pathological fracture; M13.861 Other specified arthritis, right knee; R79.89 Other specified abnormal findings of blood chemistry; F17.210 Nicotine dependence, cigarettes, uncomplicated; Z20.822 Contact with and (suspected) exposure to COVID-19
CPT/HCPCS: 36415; 36600; 71045; 73630; 73700; 80048; 80053; 81001; 82803; 82805; 82948; 83735; 83880; 84145; 84484; 85025; 85055; 85610; 85730; 87040; 87637; 93005; 93306; 94003; 94640; 96374; 96375; 99285; A9270; J0690; J0692; J1650; J1815; J1940; J2185; J2920; J2930

== ENCOUNTER 2023-04-19 21:25 | Emergency (ER) | payer BC, SELFPAY ==
--- NOTE | ~2023-04-19 | XR_ITS ---
EXAMINATION: XR forearm RT 2V INDICATION: Right forearm pain TECHNIQUE: Two views of the right forearm are obtained COMPARISON: None available FINDINGS: Bone alignment is normal. There is no fracture. There is dorsal soft tissue swelling overly ing the mid forearm. IMPRESSION: 1. No acute osseous abnormality. Reviewed, dictated and finalized at location F. LBOARD ASSEMBLER
--- NOTE | ~2023-04-19 | XR_ITS ---
EXAMINATION: XR knee LT 3V DATE: 04/19/2023 22:32 INDICATION: Left knee pain TECHNIQUE: Three views of the left knee were obtained. COMPARISON: None. FINDINGS: Alignment is normal. No fracture or osteochondral lesion. There is mild tricompartmental os teoarthritis characterized by tiny marginal osteophytes. No joint effusion/synovitis. Calcified athe rosclerosis is noted. IMPRESSION: 1. No acute osseous abnormality. Reviewed, dictated and finalized at location F. RSOLE MAKER
--- NOTE | ~2023-04-19 | CT_ITS ---
EXAMINATION: CT chest abdomen pelvis wo con DATE: 04/19/2023 22:21 INDICATION: Chest and abdominal pain after fall TECHNIQUE: Transaxial computed tomographic images of the chest, abdomen, and pelvis were obtained wit hout intravenous contrast. The dose-length product (DLP) was 1248.68 mGy-cm. Automated exposure contr ol and iterative reconstruction technique were employed. COMPARISON: None FINDINGS: CHEST CT: Evaluation is limited by the absence of intravenous contrast. There is moderate emphysema. No pleural effusion or pneumothorax. No pathologically enlarged thoracic lymph nodes are identified. The heart size is normal. There is calcified coronary artery atherosclerosis. There are healed bilateral rib fr actures. ABDOMEN/PELVIS CT: Evaluation is limited by the absence of intravenous contrast. There is mild nodularity of the liver s urface which could reflect cirrhosis. The spleen, pancreas, gallbladder, and adrenal glands are kevin l. Colonic diverticulosis is present without evidence of diverticulitis. The appendix is normal. Ther e is a large umbilical hernia containing fat. There is mild lumbar spondylosis. IMPRESSION: 1. No acute findings identified in the chest, abdomen, or pelvis, sensitivity limited by the absence of intravenous contrast. Reviewed, dictated and finalized at location F. NING DIRECTOR IMPRESSION: 1. No acute findings identified in the chest, abdomen, or pelvis, sensitivity l imited by the absence of intravenous contrast.
--- NOTE | ~2023-04-19 | XR_ITS ---
EXAMINATION: XR chest 2V DATE: 04/19/2023 21:52 INDICATION: Chest pain TECHNIQUE: PA and lateral views of the chest are obtained. COMPARISON: 04/07/2023 FINDINGS: The lungs are free of acute opacities. No pleural effusion or pneumothorax. The cardiomedia stinal silhouette is normal. There is moderate thoracic spondylosis. IMPRESSION: 1. No acute cardiopulmonary abnormality. Reviewed, dictated and finalized at location F. RBUILDER
[2023-04-19 21:22] VITALS: BP 134/77; PULSE 112; RESP 13; TEMP 36.8; O2SAT 91
[2023-04-19 21:29] VITALS: PULSE 113
--- NOTE | 2023-04-19 21:29 | ECG_ITS ---
Measurements Intervals [place] Rate: 111 P: 65 MD: 146 QRS: 180 QRSD: 78 T: 80 QT: 326 QTc: 444 Interpretive Statements SINUS TACHYCARDIA INCOMPLETE RIGHT BUNDLE BRANCH BLOCK COMPARED TO ECG 04/07/2023 20:30:45 NO SIGNIFICANT CHANGES Electronically Signed On 04-20-2023 15:38:56 [facility] INTELLIGENCE SUPPORT by Noris Ashby M.D.
[2023-04-19 21:32] VITALS: O2SAT 93
[2023-04-19 21:49] LABS: Basophils Percent Auto 0.1 % (0.2-1.2); Eosinophils Absolute Auto 0.1 K/mm3 (0-0.3); Eosinophils Percent Auto 1.1 % (0-4.4); Hematocrit 49.7 % (42.0-52.0); Hemoglobin 15.7 g/dL (14.0-18.0); Immature Granulocyte Absolute 0.04 K/mm3 (0.00-0.031); Immature Granulocyte Percent A 0.4 % (0-0.5); Immature Platelet Fraction Pct 10.1 % (0.9-11.2); Lymphocytes Absolute Auto 0.96 K/mm3 (0.9-3.2); Lymphocytes Percent Auto 9.8 % (18.3-44.2); Mean Corpuscular HGB Conc 31.6 g/dl (32-36); Mean Corpuscular Hemoglobin 29.6 pg (26-34); Mean Corpuscular Volume 93.8 fl (80-100); Mean Platelet Volume 11.7 fl (7.4-10.4); Monocytes Absolute Auto 0.7 K/mm3 (0.1-0.6); Monocytes Percent Auto 7.3 % (2.6-8.5); Neutrophils Percent Auto 81.3 % (45.5-73.1); Platelet Count Result 128 k/mm3 (150-375); White Blood Count 9.8 K/mm3 (4.5-10.0)
[2023-04-19 21:57] LABS: Alanine Aminotransferase 31 U/L (6-50); Albumin Level 3.8 g/dL (3.5-5.1); Alkaline Phosphatase 82 U/L (38-126); Anion Gap 2 mmol/L (8-16); Aspartate Amino Transferase 34 U/L (17-59); Bilirubin,Total 0.6 mg/dL (0.2-1.3); Blood Urea Nitrogen 28 mg/dL (9-20); Calcium 9.1 mg/dL (8.4-10.2); Carbon Dioxide 31 mmol/L (22-30); Chloride 100 mmol/L (98-107); Estimated CRCL calculation 86 ml/min; Estimated Glomerular Filt Rate > 60; Glucose 239 mg/dL (65-110); Lipase 171 U/L (23-300); Potassium 4.5 mmol/L (3.4-5.0); Sodium 133 mmol/L (137-145)
[2023-04-19 21:58] LABS: INR 0.9; Partial Thromboplastin Time 24.9 SECONDS (22.3-36.8); Prothrombin Time 12.7 Seconds (11.1-14.7)
[2023-04-19 22:10] LABS: Troponin I 0.041 ng/mL (0.000-0.034)
[2023-04-19 23:32] VITALS: BP 125/79; PULSE 98; RESP 20; O2SAT 92
[2023-04-19 23:39] VITALS: O2SAT 93
--- NOTE | 2023-04-20 00:13 | ED.GENADULT ---
HPI - General Adult General Chief complaint: Chest Pain Stated complaint: chest pain Time Seen by Provider: 04/19/23 21:53 History of Present Illness HPI narrative: patient is a 57-year-old gentleman who presents emergency department with chief complaint of chest pain. Patient reports that he was in the hospital for an acute exacerbation of CHF patient reports that he was discharged home on the reports that he has not got his medications filled yet as he has had transportation issues and his car apparently was impounded and is going to be removed from service. Patient reports that he had an episode today where he was walking and suddenly ended up on the ground patient reports that he has pain in the chest since fall. Patient reports no shortness of breath reports the pain is sharp and reports it is worse with the patient states that he landed on an object with his chest when he fell. Related Data Home Medications Medication Instructions Recorded Confirmed albuterol sulfate 90 mcg/actuation 2 puff inhalation Q6H PRN 04/07/23 04/07/23 aerosol inhaler Shortness Of Breath Or Wheezing aripiprazole 10 mg tablet 10 mg PO DAILY 04/07/23 04/07/23 atorvastatin 40 mg tablet 40 mg PO DAILY 04/07/23 04/07/23 bumetanide 2 mg tablet 2 mg PO DAILY 04/07/23 04/07/23 fluticasone propionate 50 1 spray intranasal DAILY 04/07/23 04/07/23 mcg/actuation nasal spray,suspension insulin glargine 100 unit/mL 10 unit subcut DAILY 04/07/23 04/07/23 subcutaneous solution (Lantus U-100 Insulin) insulin lispro 100 unit/mL 5 unit subcut TIDWMEAL 04/07/23 04/07/23 subcutaneous pen (Humalog KwikPen (U-100) Insulin) levothyroxine 25 mcg tablet 25 mcg PO DAILY 04/07/23 04/07/23 metoprolol succinate 50 mg 50 mg PO DAILY 04/07/23 04/07/23 tablet,extended release 24 hr Allergies Allergy/AdvReac Type Severity Reaction Status Date / Time codeine Allergy Hives Verified 04/07/23 16:27 ibuprofen [From Motrin] Allergy Hives Verified 04/07/23 16:27 Penicillins Allergy Hives Verified 04/07/23 16:27 Review of Systems Review of Systems: A 10 system review of systems was completed on the patient and is negative except for what is stated in the HPI. Nursing and ancillary documentation was reviewed. PMFSH Past Medical History Medical History Nicotine dependence Family History Family History Father Hypertension High blood cholesterol Diabetes mellitus Mother Breast cancer Kidney disease Social History Social History Smoking packs per day: 2 Smoking cigarettes per day: 40.0 Years smoked: 20 Smoking pack-years: 40.00 Smoking status: Current every day smoker Alcohol intake: current Drinks per week: 10 Substance use type: marijuana Do You Feel Safe in your Home?: Yes Lack of Transportation: No Lack of Food: Sometimes True Current Housing: I Do Not Have Housing Concerned About Future Housing: YES Difficulty Paying Gas/Electric Bills: YES Difficulty Paying for Meds: YES Currently Unemployed: YES Education: High School Diploma/GED Difficulty w/ Childcare or Family Care: No Spiritual care concerns: No Exam Narrative: GENERAL: Well-appearing, well-nourished, and in no acute distress. HEAD: Normocephalic, atraumatic. EYES: PERRLA and EOMI. ENT: Nares clear, no rhinorrhea or epistaxis. Mucous membranes moist. NECK: Supple. CHEST: Clear to auscultation. No respiratory distress. Chest wall is tender to palpation on the left, no crepitus noted HEART: Regular rate and rhythm. No murmur heard. Normal peripheral pulses. ABDOMEN: Soft, nontender, nondistended, normal active bowel sounds. EXTREMITIES: Normal range of motion. No edema. the patient had tenderness to palpation of the right forearm and lef
--- NOTE | 2023-04-20 00:29 | ECG_ITS ---
Measurements Intervals [place] Rate: 98 P: 77 CO: 149 QRS: 169 QRSD: 82 T: 86 QT: 356 QTc: 456 Interpretive Statements SINUS RHYTHM WITH OCCASIONAL SUPRAVENTRICULAR PREMATURE COMPLEXESE INCOMPLETE RIGHT BUNDLE BRANCH BLOCK COMPARED TO ECG 04/19/2023 21:29:12 SINUS RHYTHM NOW PRESENT Electronically Signed On 04-20-2023 15:40:54 UNIT TECHNICIAN by Noris Ashby M.D.
[2023-04-20 01:00] LABS: Troponin I 0.043 ng/mL (0.000-0.034)
[2023-04-20 01:15] VITALS: BP 106/55; PULSE 96; RESP 20; O2SAT 99
[2023-04-20 01:58] VITALS: BP 127/72; PULSE 95; RESP 23; O2SAT 100
== END 2023-04-20 02:32 | disposition home or self-care (01) ==
PROVIDERS: Emergency Provider Emergency Medicine
DX: R07.9 Chest pain, unspecified (principal); R55 Syncope and collapse; I50.9 Heart failure, unspecified; E11.9 Type 2 diabetes mellitus without complications; F17.210 Nicotine dependence, cigarettes, uncomplicated; Z79.4 Long term (current) use of insulin; R00.0 Tachycardia, unspecified; I45.10 Unspecified right bundle-branch block
CPT/HCPCS: 36415; 71046; 71250; 73090; 73562; 74176; 80053; 83690; 84484; 85025; 85055; 85610; 85730; 93005; 99284